=== PATIENT | male | born 1990 | race Caucasian/White ===

== ENCOUNTER 2017-10-19 23:01 | Emergency (ER) | payer BC, SELFPAY ==
[2017-10-19 23:02] VITALS: BP 152/82; PULSE 102; RESP 18; TEMP 36.6; O2SAT 100; BMI 38.3
--- NOTE | 2017-10-19 23:23 | CT_ITS ---
STUDY: CT BRAIN WITHOUT CONTRAST REASON FOR EXAM: Male, 27 years old. Dizziness. Frontal headache. Near syncope. Elevated blood pressure. RADIATION DOSAGE (If Supplied By Facility): CTDIvol = ( 44.99 ) mGy, DLP = ( 762.36 ) mGycm TECHNIQUE: Transaxial CT imaging of the brain was performed without administration of intravenous contrast material. Individualized dose optimization techniques were used for this CT. COMPARISON: None. FINDINGS: Normal soft tissue structures. Normal calvarium. Normal size ventricles and extra-axial spaces for the patient's age. Normal white matter tracts of the cerebral hemispheres. Normal basal ganglia and thalami. Normal brainstem. There is downward extension of the cerebellar tonsils and effacement of CSF spaces around the brainstem, consistent with a Chiari 1 malformation. Otherwise normal cerebellum. There is no intracranial hemorrhage. There are no findings of an acute ischemic infarction. There is mucoperiosteal thickening in left maxillary, bilateral ethmoid, bilateral frontal, and right sphenoid sinuses, consistent with mild chronic sinusitis. There is no evidence for acute sinusitis. CT/Brain/Head without Contrast IMPRESSION: Chiari 1 malformation. Suggest elective follow-up MRI of the cervical spine to assess for possible associated syringomyelia No demonstrated acute intracranial process. Electronically Signed: Gregg Gallagher MD at 1:10 EDT , Service support ,
--- NOTE | 2017-10-19 23:23 | RAD_ITS ---
STUDY: X-RAY CHEST REASON FOR EXAM: Male, 27 years old. Dizziness. Near syncope. TECHNIQUE: Single AP portable view of the chest. COMPARISON: None. FINDINGS: The lungs are clear and expanded. There is no demonstrated pleural abnormality. Normal size heart. Normal mediastinum and edwar. Normal visualized pulmonary arteries. Normal visualized aortic arch and descending thoracic aorta. Normal visualized thoracic spine. Normal visualized ribs, clavicles, and shoulders. There is no demonstrated abnormality of the visualized soft tissue structures of the upper abdomen. RAD/Chest 1 View (Portable) IMPRESSION: Normal x-ray examination of the chest. Electronically Signed: Gregg Gallagher MD at 1:12 EDT , Service support ,
--- NOTE | 2017-10-19 23:24 | EKG12_ITS ---
Test Reason : DIZZINESS Blood Pressure : / mmHG Vent. Rate : 083 BPM Atrial Rate : 083 BPM P-R Int : 142 ms QRS Dur : 094 ms QT Int : 364 ms P-R-T Axes : 068 071 056 degrees QTc Int : 427 ms Normal sinus rhythm Normal ECG Confirmed by BRANDAN RICH, TONEY ([id number]), supervising editor trailer CHRISTOPHER REYNAGA ([id number]) on 10/22/2017 10:33:41 AM Referred By: TONO Confirmed By:TONEY GIPSON MD
--- NOTE | 2017-10-19 23:25 | ED.VISSUMM ---
- ER Visit Summary Date of Service: 10/19/17 Chief Complaint: Dizziness History of Present Illness: The patient is a 27 M presenting with intermittent dizziness. Patient states that this happens while he is at work. 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 He states he drinks plenty of water while at work. He has had episodes where he felt lightheaded like he was going to pass out. Denies vertigo. He states that the longest episodes last 30 seconds. He has had these episodes 2-3 times per day for the past 1.5 weeks. He has a history of similar symptoms about a year ago which resolved on their own. He has appointment with a new family doctor on Wednesday. He denies chest pain or shortness of breath. He has mild nausea when he has the symptoms. No vomiting. No fever. No other complaints. Physical Examination: Vitals are stable. Patient is afebrile. Alert no acute distress. HEENT exam is unremarkable. Neck is supple. Lungs are clear and equal bilaterally. Heart is regular rate and rhythm. Abdomen is soft nontender nondistended. Extremities are unremarkable. Skin is warm and dry. No focal neurologic deficit. Remainder of exam is unremarkable. Emergency Department Course and Treatment: Patient is given IV fluids, Zofran. EKG sinus rate of 83. CBC is unremarkable. Chemistries normal except for BUN of 20. Troponin is negative. Orthostatic vital signs are negative: he had no dizziness, his heart rate increased, his blood pressure also increased. He is feeling improved following IV fluids. Chest x-ray shows no acute process. CT head shows Chiari 1 malformation. Suggest elective follow-up MRI of the cervical spine to assess for possible associated syringomyelia. No demonstrated acute intracranial process. Patient has a scheduled appointment with his primary care physician this Wednesday. He is feeling improved on reevaluation. He is advised to make sure he drinks plenty of water while at work. He is advised return ED for any worsening complaints Disposition: Discharge home Impression: Intermittent dizziness This note was generated with [employer] dictation software. It may contain incorrect words, spelling, and punctuation that were not noted in review of the chart prior to signing ED Disposition - Plan for ED Patient: Chief Complaint: Dizziness Referrals: NOT,DEFINED [Primary Care Provider] -
[2017-10-19 23:43] LABS: Absolute Lymphocyte Count 3.29 X10^3/ul (0.83-4.51); Absolute Neutrophil Count 5.4 X10^3/uL (2.0-7.7); Basophil# 0.02 X10^3/uL; Basophil% 0.2 % (0-1); Eosinophil# 0.36 X10^3/uL; Eosinophils% 3.5 % (0-5); Hematocrit 46.7 % (40-54); Hemoglobin 16.2 g/dl (13.0-16.5); Lymphocyte # 3.29 X10^3/ul (4.0); Lymphocyte % 32.3 % (19-41); Mean Corp Hgb Conc 34.7 g/gl (32-36); Mean Corpuscular Hgb 32.3 pg (27.0-32.0); Mean Corpuscular Volume 93.2 fL (80-94); Mean Platelet Vol. 10.2 fl (6.2-12.0); Monocyte# 1.12 X10^3/uL; Neutrophil # 5.36 X10^3/uL (2.7-7.7); Neutrophil % 52.7 % (47-70); Platelet Count 266 K/mm3 (150-450); RBC Distribution Width SD 43.3 fl (35.1-43.9); Red Blood Count 5.01 M/mm3 (4.6-6.2); White Blood Count 10.2 K/mm3 (4.4-11.0)
[2017-10-19 23:44] LABS: POSITIVE COUNT NO; POSITIVE DIFFERENTIAL NO; POSITIVE MORPHOLOGY NO
[2017-10-19 23:58] LABS: Anion Gap 6 (5-15); BUN 20 mg/dL (7-18); BUN/Creat Ratio 15.4 RATIO (10-20); Chloride 104 mmol/L (98-107); EST Glomerular Filtration Rate 70 mL/min (>60); Est Glom Filt Rate - Afr Amer 84 mL/min (>60); Estimated Creatinine Clearance 79.09 ml/min; Glucose 90 mg/dL (74-106); Potassium 3.7 mmol/L (3.5-5.1); Sodium Level 141 mmol/L (136-145)
[2017-10-20] MEDS: 0.9% Normal Saline 1,000 ML 1000 ML IV
[2017-10-20] MEDS: Ondansetron 4 MG/2 ML Vial IV
[2017-10-20 00:34] VITALS: BP 121/67; BP 133/75; BP 148/92; PULSE 84; PULSE 86; PULSE 97
[2017-10-20 01:11] VITALS: BP 138/79; PULSE 87; RESP 21; O2SAT 95
--- NOTE | 2017-10-20 01:52 | ED.DEP ---
ED Disposition - Plan for ED Patient: Chief Complaint: Dizziness Instructions: ED Dizziness UKO, ED Dehydration Referrals: NOT,DEFINED [Primary Care Provider] -
[2017-10-20 02:09] VITALS: BP 153/64; PULSE 81; RESP 17; O2SAT 98
--- NOTE | 2017-10-20 02:10 | ED.RN ---
IV DC'ED, CATHETER INTACT, SMALL GAUZE DRESSING PLACED. DISCHARGE INSTRUCTIONS GIVEN TO AND REVIEWED WITH PATIENT, PATIENT DENIES QUESTIONS OR CONCERNS AND VOICES UNDERSTANDING OF DISCHARGE INSTRUCTIONS. PT AMBULATES OUT OF ROOM WITHOUT DIFFICULTY.
== END 2017-10-20 02:11 | disposition home or self-care (01) ==
PROVIDERS: Emergency Provider Emergency Medicine
DX: R42 Dizziness and giddiness (principal); Z72.0 Tobacco use
CPT/HCPCS: 70450; 71045; 80048; 84484; 85025; 93005; 99285; J7030; J2405

== ENCOUNTER → 2017-11-30 15:25 | Outpatient (CLI) | payer BC, SELFPAY ==
--- NOTE | 2017-11-30 15:32 | MRI_ITS ---
STUDY: MRI BRAIN WITH AND WITHOUT CONTRAST REASON FOR EXAM: Male, 27 years old. Chiari malformation TECHNIQUE: Standardized multiplanar fat and water weighted pulse sequences were obtained. 10 ml of Gadavist contrast material was administered intravenously for the contrast portion of the examination. COMPARISON: CT of the brain on October 19, 2017. FINDINGS: Normal size of the ventricles and extra-axial spaces for the patient's age. Normal white matter tracts of the supratentorial brain. Normal bilateral basal ganglia. Normal thalami. There is no extra-axial fluid accumulation. Normal flow voids within the major intracranial circulation suggesting patency by spin echo criteria. Normal venous enhancement. There is no enhancing intra-axial or extra-axial abnormality. Normal sella turcica, pituitary gland, infundibular stalk, optic chiasm and hypothalamus. Normal tectal plate and pineal gland. Normal midbrain, treasure and medulla. There is peglike configuration of the cerebellar tonsils projecting into the upper foramen magnum consistent with Chiari I malformation. There is no associated cervical syrinx Normal basal cisterns. Normal bilateral temporal bones. Normal bilateral internal auditory canals. No demonstrated orbital abnormality, within the constraints of a routine brain study. There is mild mucosal thickening of the bilateral ethmoid, right sphenoid and right frontal sinuses. Normal calvarium and skull base. Normal visualized soft tissue structures. Normal visualized upper cervical spine. MRI/Brain W/WO Contrast IMPRESSION: Chiari I malformation of the cerebellar tonsils without associated cervical cervix. Bilateral ethmoid and right frontal and sphenoid sinusitis Electronically Signed: Jerson Self MD at 17:27 EDT , Service support ,
--- NOTE | 2017-11-30 15:33 | MRI_ITS ---
STUDY: MRI CERVICAL SPINE WITH AND WITHOUT CONTRAST REASON FOR EXAM: Male, 27 years old. Chiari malformation TECHNIQUE: Standardized fat and water weighted pulse sequences were obtained in the sagittal and axial following I.V. administration of 10 ml of Gadavist contrast material. COMPARISON: None FINDINGS: Normal foramen magnum and brainstem-cervical cord junction. Normal craniovertebral junction. Normal anterior atlantoaxial articulation. Normal odontoid process. Decreased cervical lordosis. Normal vertebral bodies and posterior osseous elements. C2-3: Normal endplates. Normal disc height, signal and morphology. Normal central canal and intervertebral neural foramina. C3-4: Normal endplates. Normal disc height, signal and tiny left posterolateral disc/osteophyte protrusion. Normal central canal. Mild left neural foraminal encroachment. C4-5: Normal endplates. Normal disc height, signal and morphology. Normal central canal and intervertebral neural foramina. C5-6: Normal endplates. Normal disc height, signal and morphology. Normal central canal and intervertebral neural foramina. C6-7: Normal endplates. Normal disc height, signal and tiny right paracentral disc protrusion.. Normal central canal and intervertebral neural foramina. C7-T1: Normal endplates. Normal disc height, signal and morphology. Normal central canal and intervertebral neural foramina. Segmental syrinx extending from C6-7 to C7 No enhancing lesions following contrast demonstration Normal visualized soft tissue structures. MRI/Spine Cervical W/WO Contrast IMPRESSION: Minor left neural foraminal encroachment at C3-4 secondary to tiny left posterolateral disc/osteophyte protrusion. Tiny right paracentral disc protrusion at C6-7 without spinal stenosis Small focal segmental syrinx extending from C6-7 to C7. No enhancing lesions following contrast demonstration Electronically Signed: Jerson Self MD at 19:35 EDT , Service support ,
== END ==
PROVIDERS: Family Provider Family Medicine; PCP Family Medicine; Visit Provider Family Medicine
DX: G93.5 Compression of brain (principal)
CPT/HCPCS: 70553; 72156; A9585

== ENCOUNTER → 2018-01-18 10:46 | Outpatient (CLI) | payer BC, SELFPAY ==
[2018-01-18 10:48] LABS: Lyme Ab Screen Interpretation REF LAB
[2018-01-18 12:03] LABS: Erythrocyte Sedimentation Rate 12 mm/hr (0-15)
[2018-01-18 12:05] LABS: Absolute Lymphocyte Count 3.21 X10^3/ul (0.83-4.51); Absolute Neutrophil Count 4.7 X10^3/uL (2.0-7.7); Basophil# 0.02 X10^3/uL; Basophil% 0.2 % (0-1); Eosinophils% 4.3 % (0-5); Hematocrit 50.2 % (40-54); Hemoglobin 16.5 g/dl (13.0-16.5); Lymphocyte # 3.21 X10^3/ul (4.0); Lymphocyte % 34.3 % (19-41); Mean Corp Hgb Conc 32.9 g/gl (32-36); Mean Corpuscular Hgb 30.9 pg (27.0-32.0); Mean Platelet Vol. 10.3 fl (6.2-12.0); Monocyte# 0.99 X10^3/uL; Monocyte% 10.6 % (0-10); Neutrophil # 4.71 X10^3/uL (2.7-7.7); Neutrophil % 50.4 % (47-70); POSITIVE COUNT NO; POSITIVE DIFFERENTIAL NO; POSITIVE MORPHOLOGY NO; Platelet Count 260 K/mm3 (150-450); RBC Distribution Width CV 13.6 % (11.6-14.6); RBC Distribution Width SD 46.8 fl (35.1-43.9); Red Blood Count 5.34 M/mm3 (4.6-6.2); White Blood Count 9.4 K/mm3 (4.4-11.0)
[2018-01-18 12:27] LABS: AST(SGOT) 25 U/L (15-37); Alanine Aminotransfer ALT/SGPT 46 U/L (16-61); Albumin, Serum 3.8 g/dL (3.2-5.0); Alkaline Phosphatase 72 U/L (45-117); Anion Gap 11 (5-15); BUN 15 mg/dL (7-18); BUN/Creat Ratio 13.8 RATIO (10-20); Calcium,Total 8.8 mg/dL (8.5-10.1); Chloride 104 mmol/L (98-107); Creatinine, Serum 1.09 mg/dL (0.70-1.30); EST Glomerular Filtration Rate 85 mL/min (>60); Est Glom Filt Rate - Afr Amer 103 mL/min (>60); Globulin 3.7 g/dL (2.2-4.2); Glucose 71 mg/dL (74-106); Potassium 3.8 mmol/L (3.5-5.1); Protein, Total 7.5 g/dL (6.4-8.2); Rheumatoid Factor < 10.0 IU/mL (<15); Sodium Level 141 mmol/L (136-145); Thyroid Stim Hormone (TSH) 2.21 uIU/mL (0.358-3.74)
[2018-01-19 08:53] LABS: Vitamin B12 302 pg/mL (211-911); Vitamin D,25 Hydroxy 20.9 ng/mL (29.95-100.01)
[2018-01-19 15:35] LABS: ANTINUCLEAR ANTIBODIES DIRECT Negative (Negative)
[2018-01-19 16:33] LABS: Lyme Scn Total Ab w/Rflx <0.91 ISR (0.00-0.90)
== END ==
PROVIDERS: Family Provider Family Medicine; PCP Family Medicine; Visit Provider Family Medicine
DX: M25.50 Pain in unspecified joint (principal); R53.83 Other fatigue
CPT/HCPCS: 36415; 80053; 82306; 82607; 84443; 85025; 85652; 86038; 86431; 86618

== ENCOUNTER → 2018-05-03 14:26 | Outpatient (CLI) | payer BC, SELFPAY ==
[2018-05-03 16:12] LABS: Vitamin D,25 Hydroxy 29.5 ng/mL (29.95-100.01)
== END ==
PROVIDERS: Family Provider Family Medicine; PCP Family Medicine; Visit Provider Family Medicine
DX: E55.9 Vitamin D deficiency, unspecified (principal)
CPT/HCPCS: 36415; 82306

== ENCOUNTER 2019-03-05 08:55 | Emergency (ER) | payer BC, SELFPAY ==
[2019-03-05 08:55] VITALS: BP 158/86; PULSE 103; RESP 18; TEMP 36.4; O2SAT 100; BMI 39.9
--- NOTE | 2019-03-05 09:13 | CT_ITS ---
STUDY: CT LUMBAR SPINE WITHOUT CONTRAST REASON FOR EXAM: Male, 28 years old. Back pain for RADIATION DOSAGE (If Supplied By Facility): CTDIvol = ( 41.71 ) mGy, DLP = ( 1149.33 ) mGycm TECHNIQUE: The patient was scanned in a multi detector CT scanner. High resolution transaxial imaging was performed. Images were obtained from T12 to S2. Sagittal and coronal images were reconstructed. Individualized dose optimization techniques were used for this CT. COMPARISON: None FINDINGS: There is straightening of the normal lumbar lordosis. There is no substantial scoliosis. Normal alignment of the lumbar vertebral bodies. There is minimal anterior wedging of L1 vertebra probably representing a normal variant. There is no demonstrated compression deformity or fracture of the visualized lumbar vertebrae. L1-2: Normal endplates. Normal disc height and morphology. Normal bilateral facet joints. Normal central canal and bilateral lateral recesses. Normal bilateral intervertebral neural foramina. L2-3: Normal endplates. Normal disc height and morphology. Normal bilateral facet joints. Normal central canal and bilateral lateral recesses. Normal bilateral intervertebral neural foramina. L3-4: Mild broad-based this bulging extending to the lateral recesses bilaterally. The central spinal canal is borderline. There is probable mild narrowing of the neural foramina bilaterally. L4-5: Mild broad-based this bulging extending to the lateral recesses bilaterally. Borderline central spinal canal and bilateral neural foramina. L5-S1: Mild central disc bulging. The central spinal canal is within normal limits. There is no definite neural foramina stenosis. Normal visualized paraspinous soft tissue structures. CT/Spine Lumbar without Contrast IMPRESSION: 1. Mild disc bulging at multiple levels as described above. 2. No demonstrated acute compression fracture deformity. 3. If symptoms persist, further evaluation with MRI of the lumbar spine is recommended. Electronically Signed: Darnell Britton MD at 10:26 EDT Tel , Service support ,
--- NOTE | 2019-03-05 09:15 | ED.VISSUMM ---
- ER Visit Summary Date of Service: 03/05/19 Chief Complaint: Back pain History of Present Illness: The patient is a 28 M who presents emergency department for evaluation of low back pain. Patient states that baseline he has chronic tightness in the low back and has been thinking about doing yoga or stretching. He tells me that he has had no known prior back trauma or injuries. Throughout this past week he notes a gradual tightening of low back. Yesterday he was at work and did lift some objects but states there is no 1 particular left that was worse than the others. By this morning he states is extremely painful for him to attempt to straighten and stand. Hard for him to get to the bathroom. He has been able to control his bowels and his bladder. He denies any radiation to the legs. He denies any leg weakness or paresthesias. Denies any recent fevers or infection. He denies any rashes. No IV drug use. He has not had any back injections. He has seen a chiropractor fairly regularly in the past. Physical Examination: Afebrile vital signs are stable Gen: Well-nourished well-developed Head: Normocephalic atraumatic Eyes: Perrl EOMI ENT: TMs clear no rhinorrhea moist mucous membranes Neck: Supple no lymphadenopathy no JVD nontender CVS: Regular rate rhythm no murmurs normal S1-S2 Respiratory: No distress clear to auscultation bilaterally chest nontender Abdomen: Soft nontender nondistended normal bowel sounds no masses Back: There is some tenderness palpation in the right paraspinal musculature. Patient has pain in the low back with any type of movement. Do not appreciate any rash or fluctuance to suggest an abscess. Extremity: Nontender no edema Skin: Normal color no rash Neuro: alert orientated ?3 CN II-XII intact normal strength sensation reflexes (+2 patellar and Achilles reflexes) Psych: Normal affect normal mood Test Results: CT of the lumbar spine was obtained which does not demonstrate any fracture or bony abnormality. No mild disc bulging at multiple levels. Emergency Department Course and Treatment: Patient received injection of Dilaudid Toradol and oral Valium. He does note significant improvement in his symptoms. At this point I do not see any evidence of neurologic deficits. Going to write for him to have Toradol, Valium, and OxyIR at home. He is to follow-up with his primary care physician. Impression: 1. Acute lumbar muscle spasm This note was generated with [employer] dictation software. It may contain incorrect words, spelling, and punctuation that were not noted in review of the chart prior to signing ED Disposition - Plan for ED Patient: Disposition: Home or Assisted Living Instructions: BACK SPASM, No Trauma Prescriptions: Oxycodone [Oxyir] 5 - 10 mg PO Q6H PRN PRN 3 Days #12 tab PRN Reason: pain Prescription Printed Ketorolac [Toradol] 10 mg PO Q8H PRN 3 Days #12 tab PRN Reason: Pain Score 1-10/10 Prescription Printed Diazepam [Valium] 5 mg PO Q8 PRN 3 Days #9 tab PRN Reason: Muscle Spasm Prescription Printed Referrals: Gary Olson, [facility] [Primary Care Provider] - 3-5 Days
[2019-03-05] MEDS: diazePAM 5 MG Tablet PO (09:34)
[2019-03-05] MEDS: Ketorolac 60 MG/2 ML Vial IM (09:34)
[2019-03-05] MEDS: HYDROmorphone 1 MG/ML Syringe IM (09:34)
[2019-03-05 10:54] VITALS: BP 136/85; PULSE 86; RESP 16; O2SAT 89
== END 2019-03-05 11:05 | disposition home or self-care (01) ==
PROVIDERS: Emergency Provider Emergency Medicine; Family Provider Nurse Practitioner Family; PCP Nurse Practitioner Family
DX: M62.830 Muscle spasm of back (principal); Z72.0 Tobacco use
CPT/HCPCS: 72131; 99283

== ENCOUNTER 2020-05-28 02:39 | Emergency (ER) | payer BC, SELFPAY ==
--- NOTE | 2020-05-28 02:40 | EKG12_ITS ---
Test Reason : CP Blood Pressure : / mmHG Vent. Rate : 099 BPM Atrial Rate : 099 BPM P-R Int : 142 ms QRS Dur : 092 ms QT Int : 348 ms P-R-T Axes : 065 066 027 degrees QTc Int : 446 ms Normal sinus rhythm Normal ECG Confirmed by SAM RICH, CORIN ([id number]), design editor FRANCISCO JAVIER GALEAS ([id number]) on 06/03/2020 9:15:22 AM Referred By: MR Confirmed By:MAUDE VARGAS MD
--- NOTE | 2020-05-28 02:40 | RAD_ITS ---
STUDY: X-RAY CHEST REASON FOR EXAM: Male, 29 years old. intermittent cp for 3 yrs -- c/o lt sided cp with pain going into lt arm worse for last 2 hours -- pain decreases when patient is sitting up TECHNIQUE: PA and lateral views of the chest. COMPARISON: 10/19/2017. FINDINGS: The lungs are clear and expanded. There is no demonstrated pleural abnormality. Normal size heart. Normal mediastinum and edwar. Normal visualized pulmonary arteries. Normal visualized aortic arch and descending thoracic aorta. Normal visualized thoracic spine. Normal visualized ribs, clavicles, and shoulders. There is no demonstrated abnormality of the visualized soft tissue structures of the upper abdomen. RAD/Chest PA and Lateral IMPRESSION: Normal x-ray examination of the chest. Electronically Signed: Louann Pritchett MD at 3:11 EST , Service support ,
[2020-05-28 02:41] VITALS: BP 161/100; PULSE 99; RESP 20; TEMP 36.8; O2SAT 99; BMI 37.5
[2020-05-28 02:47] LABS: Hemoglobin 16.6 g/dL (13.0-16.5); Red Blood Count 5.39 M/mm3 (4.6-6.2); White Blood Count 10.6 K/mm3 (4.4-11.0)
[2020-05-28 02:48] LABS: Absolute Lymphocyte Count 4.27 X10^3/uL (0.83-4.51); Absolute Neutrophil Count 5.1 X10^3/uL (2.0-7.7); Basophil# 0.04 X10^3/uL; Basophil% 0.4 % (0-1); Eosinophil# 0.28 X10^3/uL; Eosinophils% 2.6 % (0-5); Hematocrit 50.5 % (40-54); Lymphocyte # 4.27 X10^3/ul (4.0); Lymphocyte % 40.2 % (19-41); Mean Corp Hgb Conc 32.9 g/dL (32-36); Mean Corpuscular Hgb 30.8 pg (27.0-32.0); Mean Corpuscular Volume 93.7 fL (80-94); Mean Platelet Vol. 9.7 fl (6.2-12.0); Monocyte# 0.89 X10^3/uL; Monocyte% 8.4 % (0-10); NRBC Flagged by Analyzer 0 % (0-5); Neutrophil # 5.09 X10^3/uL (2.7-7.7); Platelet Count 289 K/mm3 (150-450); RBC Distribution Width CV 13.4 % (11.6-14.6); RBC Distribution Width SD 45.7 fl (35.1-43.9)
[2020-05-28] MEDS: Mag Hydrox/Al Hydrox/Simeth 30 ML UDC PO (02:48)
--- NOTE | 2020-05-28 02:57 | ED.VIS.CHEST ---
History of Present Illness Chief Complaint: Chest Pain Informant: Parent Narrative: Patient presenting for evaluation secondary to chest pain. Patient reports that over the course of multiple weeks he has been having some issues with chest pain, but tonight it seemed to get somewhat worse. Patient describes it as a sharp tightness type feeling in his left chest that is associated with some radiation to his shoulder and down his left arm. He does report that associated with some shortness of breath, denies any lightheadedness. It is associated with some nausea on occasion, he denies any heartburn or reflux type feelings. No syncope. No exertional component with this. Patient states that it almost always is worse with lying flat and is better with sitting upright. Patient states that he has had some prior similar symptoms in the past that actually resulted in coronary angiography showing clear coronaries. Patient states that he is not a smoker. Patient does have some history of heart disease on his grandfather's side. He denies any DVT or PE risk factors. Patient is on muscle relaxers, and used to take Prozac but stopped taking that about a month ago. Past Medical History - Allergies and Home Meds Allergies/Adverse Reactions: Allergies No Known Allergies Allergy (Verified 05/28/20 02:40) Primary Care Physician: Tracy Aggarwal MD [Primary Care Provider] - Prior records reviewed: Yes Past Medical History: None Lives: Spouse/ Significant Other Smoking Status: Current every day smoker - Patient denied smoking to me Alcohol: None Drugs: None Review of Systems All systems negative except as indicated General: Denies: Chills, Fever, Sweats Eyes: Denies: Visual changes - bilaterally, Diplopia ENT: Denies: Rhinorrhea, Sore throat Cardiovascular: Reports: Chest pain Respiratory: Reports: Dyspnea Gastrointestinal: Reports: Nausea Genitourinary: Denies: Dysuria, Hematuria, Frequency Musculoskeletal: Denies: Back pain, Extremity Pain Skin: Denies: Rash, Wounds Neurological: Denies: Headache, Weakness, Numbness Physical Exam Vital Signs/Narrative: Vital Signs Temp Pulse Resp BP Pulse Ox 05/28/20 02:41 98.3 F 99 20 H 161/100 H 99 Inital Vital Signs reviewed: Yes General: Well nourished, Well developed, No Acute Distress Head: Normocephalic, Atraumatic Eyes: Perrl, EOMI ENT: Moist mucous membranes, No rhinorrhea Neck: Supple, Nontender Cardiovascular: Regular rate, Regular rhythm, No murmurs, - - No evidence of rubs, no changes with change in position Respiratory: No distress, CTA bilaterally, Chest nontender Abdomen: Soft, Nontender, Nondistended, Normal bowel sounds Back: Nontender, Normal Inspection Extremities: Nontender, No edema Skin: Normal color, No rash Neurological: Alert, Oriented x3, Cranial nerves II-XII grossly intact, Normal Strength, Normal Sensation Psychological: Normal affect, Normal Mood Diagnostic/Tx/Re-eval Chest X-Ray - ED: 2 View, Read by ED Physician Clinical Impression(s) from Imaging Studies Chest X-Ray 05/28/20 02:40 IMPRESSION: Normal x-ray examination of the chest. Electronically Signed: Louann Pritchett MD at 3:11 EST , Service support , Laboratory Data 05/28/20 05/28/20 02:42 02:42 WBC 10.6 RBC 5.39 Hgb 16.6 H Hct 50.5 MCV 93.7 MCH 30.8 MCHC 32.9 RDW Std Deviation 45.7 H RDW Coeff of Fede 13.4 Plt Count 289 MPV 9.7 Immature Gran % (Auto) 0.400 Neut % (Auto) 48.0 Lymph % (Auto) 40.2 [place] % (Auto) 8.4 Eos % (Auto) 2.6 Baso % (Auto) 0.4 Absolute Neuts (auto) 5.1 Absolute Lymphs (auto) 4.27 Nucleated RBC % 0 ESR 12 Sodium 140 Potassium 3.9 Chloride 106 Carbon Dioxide 31.0 Anion Gap 3 L BUN 16 Creatinine 1.02 Estim Creat Clear Calc 116.23 Est GFR (MDRD) Af Amer 110 Est GFR (MDRD) Non-Af 91 BUN/Creatinine Ratio 15.7 Glucose 103 Calcium 8.7 Troponin I < 0.015 - EKG Initial EKG Interpretation: - - Sinus rhythm 99, normal SD and QTc intervals isoelectric ST segments normal T waves no evidence of WPW or Brugada morphology, no evidence of diffuse ST elevation or pericarditis type changes. - Medical Decision Making Patient presenting secondary to chest pain. Chest x-ray by my personal review as well as radiology is negative. CBC chemistry and troponin also found to be unremarkable. Patient's maximum heart score is 2, he had a cardiac catheterization around 2 years ago and his symptoms sound rather atypical. I did also add on ESR in case this was a presentation of pericarditis, that was also found to be negative. Patient given the reproduction with recumbency potentially is associated with GERD. Patient be placed on a PPI, he will be given follow-up with general surgery. Patient was discharged in stable condition. ED Disposition - Plan for ED Patient: Disposition: Home or Assisted Living Diagnosis: GERD (gastroesophageal reflux disease) Instructions: ED GERD (Adult) Prescriptions: Omeprazole 40 mg PO DAILY #30 capsule. Prescription Printed Referrals: Chantell Taylor MD [STAFF PHYSICIAN] - 1-2 Weeks
[2020-05-28 03:03] LABS: Anion Gap 3 (5-15); BUN 16 mg/dL (7-18); BUN/Creat Ratio 15.7 RATIO (10-20); Calcium,Total 8.7 mg/dL (8.5-10.1); Chloride 106 mmol/L (98-107); Creatinine, Serum 1.02 mg/dL (0.70-1.30); EST Glomerular Filtration Rate 91 mL/min (>60); Est Glom Filt Rate - Afr Amer 110 mL/min (>60); Estimated Creatinine Clearance 116.23 ml/min; Glucose 103 mg/dL (74-106); Potassium 3.9 mmol/L (3.5-5.1); Sodium Level 140 mmol/L (136-145)
[2020-05-28 03:08] LABS: Erythrocyte Sedimentation Rate 12 mm/hr (0-15)
[2020-05-28 03:54] VITALS: BP 138/87; PULSE 98; RESP 16; O2SAT 97
[2020-05-28 04:28] VITALS: BP 141/99; PULSE 94; RESP 16; O2SAT 98
== END 2020-05-28 04:35 | disposition home or self-care (01) ==
PROVIDERS: Emergency Provider Emergency Medicine; PCP Internal Medicine
DX: K21.9 Gastro-esophageal reflux disease without esophagitis (principal)
CPT/HCPCS: 71046; 80048; 84484; 85025; 85652; 93005; 99285; A4216

== ENCOUNTER 2021-11-18 00:14 | Emergency (ER) | payer BC, SELFPAY ==
[2021-11-18 00:15] VITALS: BP 131/82; PULSE 72; RESP 16; TEMP 36.4; O2SAT 100; BMI 27.8
--- NOTE | 2021-11-18 00:35 | RAD_ITS ---
STUDY: X-RAY CHEST REASON FOR EXAM: Male, 31 years old. hemoptysis TECHNIQUE: Frontal and lateral views of the chest. COMPARISON: None. FINDINGS: The lungs are clear and expanded. There is no demonstrated pleural abnormality. Normal size heart. Normal mediastinum and edwar. Normal visualized pulmonary arteries. Normal visualized aortic arch and descending thoracic aorta. Normal visualized thoracic spine. Normal visualized ribs, clavicles, and shoulders. There is no demonstrated abnormality of the visualized soft tissue structures of the upper abdomen. RAD/Chest PA and Lateral IMPRESSION: Normal x-ray examination of the chest. Electronically Signed: Kat Paige MD at 1:05 EDT ,
[2021-11-18 00:59] LABS: Absolute Lymphocyte Count 4.47 X10^3/uL (0.83-4.51); Absolute Neutrophil Count 3.8 X10^3/uL (2.0-7.7); Basophil# 0.03 X10^3/uL; Basophil% 0.3 % (0-1); Eosinophil# 0.27 X10^3/uL; Eosinophils% 2.9 % (0-5); Hematocrit 43.5 % (40-54); Hemoglobin 14.4 g/dL (13.0-16.5); Lymphocyte # 4.47 X10^3/ul (0.83-4.51); Lymphocyte % 48.4 % (19-41); Mean Corp Hgb Conc 33.1 g/dL (32-36); Mean Corpuscular Hgb 30.1 pg (27.0-32.0); Mean Corpuscular Volume 90.8 fL (80-94); Mean Platelet Vol. 9.7 fl (6.2-12.0); Monocyte# 0.69 X10^3/uL; Monocyte% 7.5 % (0-10); NRBC Flagged by Analyzer 0 % (0-5); Neutrophil # 3.76 X10^3/uL (2.7-7.7); Neutrophil % 40.7 % (47-70); Platelet Count 276 K/mm3 (150-450); RBC Distribution Width CV 13.1 % (11.6-14.6); RBC Distribution Width SD 43.7 fl (35.1-43.9); Red Blood Count 4.79 M/mm3 (4.6-6.2); White Blood Count 9.2 K/mm3 (4.4-11.0)
[2021-11-18 01:10] LABS: D-Dimer Quantitative (DVT/PE) < 0.27 FEU/ug/m (0.27-0.49)
[2021-11-18 01:18] LABS: Anion Gap 5 (5-15); BUN 21 mg/dL (7-18); BUN/Creat Ratio 18.8 RATIO (10-20); Calcium,Total 9.1 mg/dL (8.5-10.1); Chloride 111 mmol/L (98-107); Creatinine, Serum 1.12 mg/dL (0.70-1.30); EST Glomerular Filtration Rate 81 mL/min (>60); Est Glom Filt Rate - Afr Amer 98 mL/min (>60); Estimated Creatinine Clearance 91.61 ml/min; Glucose 92 mg/dL (74-106); Potassium 3.7 mmol/L (3.5-5.1); Sodium Level 144 mmol/L (136-145)
--- NOTE | 2021-11-18 01:22 | EX.ED.DYSGE1 ---
HPI History of Present Illness Chief Complaint: General Illness Detail of Chief Complaint: Hemoptysis Informant: patient Onset/Context/Timing Onset: Today Narrative Narrative: Patient presents after coughing up some blood tonight. Approximately half hour prior to arrival he coughed and had some blood streaks noted in it. He has not been coughing or sick recently. He does state for the past 5 years he has had pain throughout his thoracic area and arms. He has been getting worked up for this with no definitive cause. In light of this and now having hemoptysis he came in for evaluation of it. [facility] Medical History High cholesterol Home Medications cyclobenzaprine 10 mg tablet 10 mg PO PRN PRN Muscle Spasm 05/28/20 [History Last Taken Unknown] omeprazole 40 mg capsule,delayed release 40 mg PO DAILY ##30 05/28/20 [Rx Last Taken Unknown] atorvastatin 10 mg tablet 10 mg PO DAILY 11/18/21 [History Last Taken Unknown] Allergy/AdvReac Type Severity Reaction Status Date / Time No Known Allergies Allergy Verified 11/18/21 00:15 Social History Smoking Status: Former smoker ROS ROS ED Constitutional Constitutional ED: Denies chills or fever(s) Eyes Eyes: Denies change in vision or discharge from eye(s) ENT ENT ED: Denies discharge from eye(s), rhinorrhea or sore throat Cardiovascular Cardiovascular: Denies chest pain or palpitations Respiratory/Chest Respiratory/Chest: Reports other Details: Single episode of hemoptysis ; Denies dyspnea Gastrointestinal Gastrointestinal: Denies abdominal pain, diarrhea, nausea or vomiting Genitourinary Genitourinary ED: Denies difficulty urinating or dysuria Musculoskeletal Musculoskeletal: Reports back pain and extremity pain Integumentary Denies Abrasions or rash Neurologic Neurologic: Denies headache(s) or weakness Psychiatric Psychiatric: Denies anxiety or depression Allergic/Immunologic Allergic/Immunologic ED: Denies lip swelling or urticaria EXAM Physical Exam Const Vital Signs: 11/18/21 00:15 11/18/21 00:23 Temperature 97.5 F L Temperature Source Temporal Pulse Rate 72 Respiratory Rate 16 Respiratory Effort Short of Breath Blood Pressure 131/82 H Blood Pressure Mean 98 Pulse Ox 100 Oxygen Delivery Method Room Air Positive well nourished and well developed General Appearance ED: well developed HEENT Reports normocephalic and head/scalp atraumatic HEENT Narrative: Mild cobblestoning the posterior pharynx. No blood noted. Eyes PERRL and EOMs intact bilaterally Neck supple Chest Wall inspection of chest normal and palpation of chest normal Resp normal respiratory effort and clear to auscultation bilaterally Cardio regular rate and regular rhythm GI normal to inspection, nondistended, normoactive bowel sounds Palpation: soft Extremity normal to inspection Neuro oriented x3 and no sensory deficits noted Sensorium / Orientation: alert Motor Exam: strength 5/5 throughout Psych mental status grossly normal Skin no rashes or lesions noted MDM MDM MDM Narrative Medical decision making narrative: Patient placed on monitor technician. Chest x-ray and lab work obtained. Lab Data Labs: Laboratory Results - last 24 hr 11/18/21 11/18/21 11/18/21 00:28 00:28 00:28 WBC 9.2 RBC 4.79 Hgb 14.4 Hct 43.5 MCV 90.8 MCH 30.1 MCHC 33.1 RDW Std Deviation 43.7 RDW Coeff of Fede 13.1 Plt Count 276 MPV 9.7 Immature Gran % (Auto) 0.200 Neut % (Auto) 40.7 L Lymph % (Auto) 48.4 H [place] % (Auto) 7.5 Eos % (Auto) 2.9 Baso % (Auto) 0.3 Absolute Neuts (auto) 3.8 Absolute Lymphs (auto) 4.47 Nucleated RBC % 0 D-Dimer Quant (PE/DVT) < 0.27 L Sodium 144 Potassium 3.7 Chloride 111 H Carbon Dioxide 28.0 Anion Gap 5 BUN 21 H Creatinine 1.12 Estim Creat Clear Calc 91.61 Est GFR (MDRD) Af Amer 98 Est GFR (MDRD) Non-Af 81 BUN/Creatinine Ratio 18.8 Glucose 92 Calcium 9.1 Radiography Chest X-Ray - ED: 2 View, Read by ED Physician, Normal, Heart, Lungs, Mediastinum and No Infiltrates Diagnostic Testing: Clinical Impression(s) from Imaging Studies Chest X-Ray 11/18/21 00:35 IMPRESSION: Normal x-ray examination of the chest. Electronically Signed: Kat Paige MD at 1:05 EDT , Treatment and Re-Evaluation Narrative: Rotation right2 view chest x-ray read by myself reveals no infiltrates or masses. Viewed. Lab work unremarkable including negative D-dimer. Patient is reassured with these findings. He will continue his outpatient work-up for his chronic thoracic pain. Return instructions provided. Discharge Plan Triage Chief Complaint: General Illness ED Provider: Zoila Sebastian Dx/Rx/DC Orders Clinical Impression: Cough with hemoptysis Instructions: ED Hemoptysis Prescriptions: No Action cyclobenzaprine 10 MG tablet 10 mg PO PRN PRN (Reason: Muscle Spasm) omeprazole 40 MG capsule,delayed release(DR/EC) 40 mg PO DAILY Qty: 30 0RF atorvastatin 10 mg Tablet 10 mg PO DAILY Primary Care Provider: Terrell Baker Referrals: Terrell Baker MD [Primary Care Provider] - 3-5 Days if not improving Disposition Disposition: Home, Self Care
[2021-11-18 01:40] VITALS: BP 90/64; PULSE 68; RESP 16; O2SAT 98
--- NOTE | 2021-11-18 01:41 | ED.RN ---
REVIEWED D/C INSTRUCTIONS, FOLLOW UP CARE, AND S/S THAT WOULD WARRANT A RETURN TO THE ED WITH PT. PT VERBALIZED AN UNDERSTANDING AND DENIES FURTHER QUESTIONS FOR THIS RN. PT SKIN P/W/D, RESP EVEN AND UNLABORED, PT A&O X 3, NO DISTRESS NOTED. PT AMBULATED OUT OF ED, GAIT STEADY.
== END 2021-11-18 01:42 | disposition home or self-care (01) ==
PROVIDERS: Emergency Provider Emergency Medicine; PCP Family Medicine; Visit Provider Emergency Medicine
DX: R04.2 Hemoptysis (principal); E78.00 Pure hypercholesterolemia, unspecified; Z79.899 Other long term (current) drug therapy; Z87.891 Personal history of nicotine dependence
CPT/HCPCS: 71046; 80048; 85025; 85379; 99284

== ENCOUNTER 2022-01-21 20:34 | Emergency (ER) | payer BC, SELFPAY ==
[2022-01-21 20:35] VITALS: BP 146/85; PULSE 92; RESP 14; TEMP 36.3; O2SAT 98; BMI 28.5
--- NOTE | 2022-01-21 20:48 | EKG12_ITS ---
Test Reason : DYSRHYTHMIA Blood Pressure : / mmHG Vent. Rate : 081 BPM Atrial Rate : 081 BPM P-R Int : 134 ms QRS Dur : 090 ms QT Int : 362 ms P-R-T Axes : 074 068 049 degrees QTc Int : 420 ms Normal sinus rhythm Normal ECG Confirmed by SAM RICH, CORIN ([id number]), news editor FRANCISCO JAVIER GALEAS ([id number]) on 01/22/2022 1:29:08 PM Referred By: SAUNDRA Confirmed By:MAUDE VARGAS MD
[2022-01-21 21:03] LABS: Absolute Lymphocyte Count 2.48 X10^3/uL (0.83-4.51); Absolute Neutrophil Count 3.3 X10^3/uL (2.0-7.7); Basophil# 0.03 X10^3/uL; Basophil% 0.5 % (0-1); Eosinophil# 0.13 X10^3/uL; Hematocrit 45.2 % (40-54); Hemoglobin 15.4 g/dL (13.0-16.5); Lymphocyte # 2.48 X10^3/ul (0.83-4.51); Lymphocyte % 38.2 % (19-41); Mean Corp Hgb Conc 34.1 g/dL (32-36); Mean Corpuscular Hgb 30.6 pg (27.0-32.0); Mean Corpuscular Volume 89.7 fL (80-94); Mean Platelet Vol. 9.2 fl (6.2-12.0); Monocyte# 0.58 X10^3/uL; Monocyte% 8.9 % (0-10); NRBC Flagged by Analyzer 0 % (0-5); Neutrophil # 3.25 X10^3/uL (2.7-7.7); Neutrophil % 50.1 % (47-70); Platelet Count 258 K/mm3 (150-450); RBC Distribution Width CV 12.4 % (11.6-14.6); RBC Distribution Width SD 40.6 fl (35.1-43.9); Red Blood Count 5.04 M/mm3 (4.6-6.2); White Blood Count 6.5 K/mm3 (4.4-11.0)
[2022-01-21 21:04] VITALS: BMI 28.5
--- NOTE | 2022-01-21 21:06 | EX.ED.DYSGE1 ---
HPI History of Present Illness Chief Complaint: Neuro S/Sx Informant: patient Narrative Narrative: Patient presents with intermittent pain in his left forearm for which he reports deep spasms and tightness similar to vice director of rotc with referred pain up his arm and down his legs. There is no pain or numbness in his body or face. Reports her last 2 minutes would come and go. Last time was 30 minutes prior to arrival. Denies trauma. Denies any new exercises yesterday evening. He has had multiple episodes in the past with similar presentations. Last time 6 months ago he states he was evaluated at emergency department. He states unknown etiology. He seen his PCP's concerns for cervical radiculopathy. He is referred to neurology pending. He is right-hand dominant. He is on Flexeril for which she states does not help. History of Arnold-Chiari syndrome with no surgical interventions. Currently symptoms have subsided. Denies recent vomiting or diarrhea. Prior similar symptoms: Yes [facility] Medical History High cholesterol Home Medications cyclobenzaprine 10 mg tablet 10 mg PO PRN PRN Muscle Spasm 05/28/20 [History Last Taken Unknown] omeprazole 40 mg capsule,delayed release 40 mg PO DAILY ##30 05/28/20 [Rx Last Taken Unknown] atorvastatin 10 mg tablet 10 mg PO DAILY 11/18/21 [History Last Taken Unknown] diazepam 5 mg tablet 5 mg PO Q8 PRN Muscle Spasm #12 tabs 01/21/22 [Rx Last Taken Unknown] Allergy/AdvReac Type Severity Reaction Status Date / Time No Known Allergies Allergy Verified 01/21/22 20:35 Social History Smoking Status: Former smoker ROS ROS ED Constitutional Constitutional ED: Denies chills, fever(s) or sweats Eyes Eyes: Denies change in vision ENT ENT ED: Denies dysphagia or sore throat Cardiovascular Cardiovascular: Denies chest pain, leg edema, palpitations or racing heartbeat Respiratory/Chest Respiratory/Chest: Denies cough, dyspnea or dyspnea on exertion Gastrointestinal Gastrointestinal: Denies abdominal pain, diarrhea, nausea or vomiting Genitourinary Genitourinary ED: Denies dysuria, hematuria or urinary frequency Musculoskeletal Musculoskeletal: Reports extremity pain and other Details: Left arm pain. ; Denies back pain or neck pain Integumentary Denies rash or wounds Neurologic Neurologic: Denies headache(s), paresthesias or weakness EXAM Physical Exam Const Vital Signs: 01/21/22 20:35 Temperature 97.3 F L Temperature Source Temporal Pulse Rate 92 Respiratory Rate 14 Blood Pressure 146/85 H Blood Pressure Mean 105 Pulse Ox 98 Oxygen Delivery Method Room Air Positive well nourished and well developed General Appearance ED: well developed and NAD HEENT Reports moist mucous membranes normocephalic and atraumatic Eyes PERRL, EOMs intact bilaterally and conjunctivae normal General Eye ED: Yes normal appearance of both eyes Neck no lymphadenopathy and supple General: Negative for tenderness Chest Wall Chest: Negative for tenderness Resp normal respiratory effort and normal air movement Effort and Inspection: symmetric chest movement; Negative for respiratory distress Cardio regular rate, regular rhythm and no murmurs Peripheral Pulses: pulses 2+ throughout GI normal to inspection, nondistended, normoactive bowel sounds and non-tender Palpation: Negative for guarding or rebound tenderness present Back/Spine no CVA tenderness and no thoracic nor lumbar tenderness Extremity normal to inspection Extremity Narrative: Left upper extremity: Soft compartments humerus forearm, distal pulses were intact. General Extremety ED: Negative for edema or tenderness General Extremity: Negative for edema Neuro oriented x3, CN's II-XII intact bilaterally and no sensory deficits noted Neuro Narrative: NIH equals 0. Cerebellar testing upper and lower intact and normal. Sensorium / Orientation: awake and alert Skin no rashes or lesions noted and no wounds MDM MDM MDM Narrative Medical decision making narrative: Patient currently asymptomatic. EKG normal labs with electrolytes are normal. No clear reason for his reported symptoms. However discussed concerns for muscle spasms causing his symptoms. He reported multiple symptoms in the past. He had significant symptoms at the age of 28 leading to his chest reported had a heart cath that was normal at that time through [facility]. He has had multiple work-ups. He is being referred to Dr. Cervantes to be seen in 2 weeks. Reports pain would be intense causing near syncopal episode discussed likely a vasovagal response to pain. Currently not having the symptoms. He states Flexeril does not work. Discussed holding this medicine he will be written for diazepam to use as needed. He will keep his follow-up with neurology as an outpatient. All questions were answered. Lab Data Attestation: I reviewed the patient's lab results. Labs: Laboratory Results - last 24 hr 01/21/22 01/21/22 20:57 20:57 WBC 6.5 RBC 5.04 Hgb 15.4 Hct 45.2 MCV 89.7 MCH 30.6 MCHC 34.1 RDW Std Deviation 40.6 RDW Coeff of Fede 12.4 Plt Count 258 MPV 9.2 Immature Gran % (Auto) 0.300 Neut % (Auto) 50.1 Lymph % (Auto) 38.2 [place] % (Auto) 8.9 Eos % (Auto) 2.0 Baso % (Auto) 0.5 Absolute Neuts (auto) 3.3 Absolute Lymphs (auto) 2.48 Nucleated RBC % 0 Sodium 140 Potassium 3.8 Chloride 107 Carbon Dioxide 28.0 Anion Gap 5 BUN 22 H Creatinine 1.11 Estim Creat Clear Calc 92.43 Est GFR (MDRD) Af Amer 99 Est GFR (MDRD) Non-Af 81 BUN/Creatinine Ratio 19.8 Glucose 106 Calcium 9.0 EKG Initial EKG: Attestation: I personally reviewed and interpreted this EKG as follows: Comments: Sinus rhythm rate of 81, no ST or T wave changes. Discharge Plan Triage Chief Complaint: Neuro S/Sx ED Provider: Bobby Conner Dx/Rx/DC Orders Clinical Impression: Pain of left forearm, Muscle spasm Prescriptions: New diazepam [diazepam] 5 mg tablet 5 mg PO Q8 PRN (Reason: Muscle Spasm) Qty: 12 0RF No Action cyclobenzaprine 10 MG tablet 10 mg PO PRN PRN (Reason: Muscle Spasm) omeprazole 40 MG capsule,delayed release(DR/EC) 40 mg PO DAILY Qty: 30 0RF atorvastatin 10 mg Tablet 10 mg PO DAILY Primary Care Provider: Gary Olson NP Referrals: Primo Cervantes MD [Non-Staff] - Keep Francois appointment Gary Olson NP, MANAGER [employer] [Primary Care Provider] - Activity Restrictions/Additional Instructions: Keep appointment with Dr. cervantes as an outpatient. Stop your Flexeril. Use Valium as needed. Disposition Disposition: Home, Self Care Discharge Date/Time: 01/21/22 22:27
[2022-01-21 21:16] LABS: Anion Gap 5 (5-15); BUN 22 mg/dL (7-18); BUN/Creat Ratio 19.8 RATIO (10-20); Chloride 107 mmol/L (98-107); Creatinine, Serum 1.11 mg/dL (0.70-1.30); EST Glomerular Filtration Rate 81 mL/min (>60); Est Glom Filt Rate - Afr Amer 99 mL/min (>60); Estimated Creatinine Clearance 92.43 ml/min; Glucose 106 mg/dL (74-106); Potassium 3.8 mmol/L (3.5-5.1); Sodium Level 140 mmol/L (136-145)
== END 2022-01-21 22:27 | disposition home or self-care (01) ==
PROVIDERS: Emergency Provider Emergency Medicine; PCP Nurse Practitioner Family; Visit Provider Emergency Medicine
DX: M79.632 Pain in left forearm (principal); M62.838 Other muscle spasm; E78.00 Pure hypercholesterolemia, unspecified; Z79.899 Other long term (current) drug therapy; Z87.891 Personal history of nicotine dependence
CPT/HCPCS: 80048; 85025; 93005; 99282

== ENCOUNTER 2022-02-20 10:00 | Outpatient (RCR) | payer BC, SELFPAY ==
--- NOTE | 2022-02-09 10:05 | HP.PTEVAL ---
Patient's Visit Information AIXA GALLAGHER is a 31 year old M referred to Physical Therapy by Dr. Primo Cervantes MD with a diagnosis of vertigo, Cervicalgia. Date of Evaluation: 02/09/22 Physical Therapist: KALEN Hamlin - Visit Plan Frequency: 2x /Week Duration: 4 Weeks Plan: 2X/ week for 4 weeks for light MT to the c-spine musculature, smooth pursuit and vestibular inputs, postural exercises, with US HEP - Subjective Pt reports that he gets several kinds of dizziness. One is induced by panic and sensory overload cause his vision gets blurry and this has been going on for 3 years now. When he has these episodes are when he is around a lot of light and around a lot of people. It tends to send him into overload. He has never had seizure but the Dr keeps asking if he has had one. He fights nausea everyday. This all started 5 years ago. He was a heavy drinker and smoker and heavier at the time with a stressful job. He has never been the same since December 04, 2016. He gets so many OROSCO cause he has constant OROSCO. They have done brain MRI's. Another kind of dizziness is what the Dr says is vaso vegal but he does not think so. What is happening is that he has some kind of autoimmune disease or something and been checked out by several cardiologists and he is fine. 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 The Dr theory that a nerve is getting pinched and getting a vaso vegal response and he did check his BP one time and it was fine. The Dr did a neuo exam and has R eye vertigo and that is why he is here today. He feels that he has more going on than that. He has not dizziness when rolling over in bed. Squatting at the knees and bending over increases his dizziness. When he gets up from a squatting he gets a light headed feeling that lasts 10 seconds. Rahat,ax is helping with the OROSCO are like a band around his head in the back and front and some behind his ears. He will get a rapid pain like a rapid inflation of a balloon in his head and lasts 1-2 minutes and then stops and occurs a few times a week. He reports that his balance is not bad. C-spine pain is always there and always neck pain and trap pain. Pt feels that he is not as strong as what he used to be... he reports that the Dr says that he is not weaker on one side versus the other side but he feels that the L side is heavier. - Pain L sided body pain Pain Intensity (Out of 10): 3 Pain Intensity Range: 6 Comment: he has pain 24/7 OROSCO Pain Intensity (Out of 10): 2 C-spine pain Pain Intensity (Out of 10): 3 - Objective Gait: walks with normal gait pattern. Walking and turning 180 degrees fast X 3 attempts with no increase in dizziness. Walking with horizontal head turns causes increase in dizziness and nausea feeling. Walking with vertical head turns does not increase his dizziness. C-spine AROM: flex 100%, Ext 50% (pt reports increase in nausea), ROT B 75%, SB B 80%. Horizontal smooth pursuit: smooth motion X 30 seconds. Vertical smooth pursuit: Slight jumpiness and a little bit of dizziness and slight pressure in his eyes X 30 seconds. Head and eyes move together horizontal: slight off feeling X 30 seconds. Head and eyes move together vertical: slight off feeling X 30 seconds. Eyes focused and head move horizontal: Eyes burry and no dizziness X 30 seconds. Eyes focused and head move vertical: No issue X 30 seconds. CATSIB: 120/120 - Balance/Special Test Scores CATSIB Score (Max score 120 seconds): 120 Dizziness Score: 46 - Goals Goal 1:: I HEP Goal Time Frame: 2-4 Weeks Goal 2:: Decrease freq of OROSCO and dizziness by 50% Goal Time Frame: 2-4 Weeks Goal 3:: Increase vertical and horizontal smooth pursuit with no dizziness for 1 min in standing and sitting Goal Time Frame: 2-4 Weeks Goal 4:: Increase C-spine AROM to 100% with no pain - Rehabilitation Potential Rehabilitation Potential: Good - Anticipated Interventions Patient/Client Instruction: Educate patient on: Condition, Plan of Care For the Purpose of:: To decrease pain, To improve nutrient delivery to tissue, To increase oxygenation perfusion, To improve muscle performance and motor function, To improve ability to perform ADL's, To increase tolerance to activity/condition/position, To improve performance and independence with ADL's, To decrease level of supervision to perform tasks, To improve ability of physical actions for home/community/work/leisure, To improve health of tissue, To decrease soft tissue restriction, To increase flexibility/ROM Therapeutic Exercise to Include: Strength training, Postural training, Flexibilty training, Neuromotor development, Passive ROM, Active ROM, Scapular Strength/Stabilization For the Purpose of:: To decrease pain, To increase ROM, To improve nutrient delivery to tissue, To increase oxygenation perfusion, To improve muscle performance and motor function, To increase tolerance to activity/condition/position, To improve performance and independence with ADL's, To decrease level of supervision to perform tasks, To improve ability of physical actions for home/community/work/leisure, To improve health of tissue, To decrease soft tissue restriction, To increase flexibility/ROM Manual Therapy Techniques to Include: Passive ROM, Soft tissue mobilization For the Purpose of:: To decrease pain, To increase ROM, To improve nutrient delivery to tissue, To improve muscle performance and motor function, To improve ability to perform ADL's, To increase tolerance to activity/condition/position, To improve performance and independence with ADL's, To decrease level of supervision to perform tasks, To improve ability of physical actions for home/community/work/leisure, To improve health of tissue, To decrease soft tissue restriction, To increase flexibility/ROM Thermo therapy (hot pack): Yes Ultrasound (thermal/non thermal): Yes For the Purpose of:: To decrease pain, To increase ROM, To improve nutrient delivery to tissue, To improve muscle performance and motor function, To improve ability to perform ADL's, To improve performance and independence with ADL's, To improve health of tissue, To decrease soft tissue restriction, To increase flexibility/ROM Thank you for the opportunity to evaluate your patient. For Medicare and Medicare HMO plans, please review the plan of care and approve it. It will need to be FAXED BACK to us at [phone] for Medicare purposes. For Medicare only, by signing this I certify the plan of care. Please let me know if there are questions or concerns regarding this plan of care. Physician Signature: Date:
--- NOTE | 2022-03-10 10:47 | HP.PT.NRP ---
AIXA GALLAGHER was seen in my office for initial evaluation on 02/09/22. The following Plan of Care was established for this patient: Initial Frequency: 2x /Week Initial Duration: 4 Weeks Patient/Client Instruction: Educate patient on: Condition, Plan of Care For the Purpose of:: To decrease pain, To improve nutrient delivery to tissue, To increase oxygenation perfusion, To improve muscle performance and motor function, To improve ability to perform ADL's, To increase tolerance to activity/condition/position, To improve performance and independence with ADL's, To decrease level of supervision to perform tasks, To improve ability of physical actions for home/community/work/leisure, To improve health of tissue, To decrease soft tissue restriction, To increase flexibility/ROM Therapeutic Exercise to Include: Strength training, Postural training, Flexibilty training, Neuromotor development, Passive ROM, Active ROM, Scapular Strength/Stabilization For the Purpose of:: To decrease pain, To increase ROM, To improve nutrient delivery to tissue, To increase oxygenation perfusion, To improve muscle performance and motor function, To increase tolerance to activity/condition/position, To improve performance and independence with ADL's, To decrease level of supervision to perform tasks, To improve ability of physical actions for home/community/work/leisure, To improve health of tissue, To decrease soft tissue restriction, To increase flexibility/ROM Manual Therapy Techniques to Include: Passive ROM, Soft tissue mobilization For the Purpose of:: To decrease pain, To increase ROM, To improve nutrient delivery to tissue, To improve muscle performance and motor function, To improve ability to perform ADL's, To increase tolerance to activity/condition/position, To improve performance and independence with ADL's, To decrease level of supervision to perform tasks, To improve ability of physical actions for home/community/work/leisure, To improve health of tissue, To decrease soft tissue restriction, To increase flexibility/ROM Thermo therapy (hot pack): Yes Ultrasound (thermal/non thermal): Yes For the Purpose of:: To decrease pain, To increase ROM, To improve nutrient delivery to tissue, To improve muscle performance and motor function, To improve ability to perform ADL's, To improve performance and independence with ADL's, To improve health of tissue, To decrease soft tissue restriction, To increase flexibility/ROM This patient was last seen in our office 02/12/22. Pertinent comments regarding their Physical therapy will appear below: JASPREET PT at this time as pt has no showed for his remaining appts. At this point I will be discontinuing this patient from physical therapy. I would be happy to see this patient again in the future if found appropriate by the physician. Thank you! Rosetta Olguin, KALEN Balance/Gait/Functional tests - Balance/Special Test Scores CATSIB Score (Max score 120 seconds): 120 Dizziness Score: 46
== END 2022-02-20 19:00 | disposition home or self-care (01) ==
LOC: PT 10:00
PROVIDERS: PCP Nurse Practitioner Family; Referring Provider Psychiatry & Neurology Neurology; Visit Provider Psychiatry & Neurology Neurology
DX: R42 Dizziness and giddiness (principal); M54.2 Cervicalgia
CPT/HCPCS: 97110; 97140; 97161

== ENCOUNTER → 2022-03-16 | Outpatient (CLI) | payer OTHER, SELFPAY ==
--- NOTE | 2022-03-16 09:53 | ART_ITS ---
Reason For Study: evaluate for thoracic outlet syndrome Procedure A bilateral upper extremity continuous wave Doppler with analog waveform analysis and segmental pressures. Left Segmental Pressures Left brachial= 128mmHg. Left forearm by way of the radial artery = 113mmHg. Left radial= 138mmHg. Left ulnar= 150mmHg. Left digit = 121 mmHg. Right Segmental Pressures Right brachial= 123mmHg. Right forearm pressure by way of the radial artery = 125mmHg. Right radial= 144mmHg. Right ulnar= 140mmHg. Right digit = 121 mmHg. The right radial waveforms are triphasic. The right ulnar waveforms are triphasic. Indices The right wrist-brachial index is 1.13. The right digital-brachial index is .95. The left wrist- brachial index is 1.17. The left digital-brachial index is .95. VL/Upper Extremity Arterial Study Interpretation Summary Right wrist-brachial index 1.13, normal. PVR/Doppler waveforms normal at rest. No change in right upper extremity waveforms with maneuvers. Left wrist-brachial index 1.17, normal. PVR/Doppler waveforms normal at rest. No change in left upper extremity waveforms with maneuvers. Ordering Physician: Evert Reyes Referring Physician: EVERT MOBLEY MD Performed By: Clifford Bui RVT
== END | disposition home or self-care (01) ==
PROVIDERS: PCP Nurse Practitioner Family; Referring Provider Surgery Trauma Surgery; Visit Provider Surgery Trauma Surgery
DX: G54.0 Brachial plexus disorders (principal)
CPT/HCPCS: 93923

== ENCOUNTER → 2022-04-08 | Outpatient (CLI) | payer OTHER, SELFPAY ==
--- NOTE | 2022-04-08 17:50 | CT_ITS ---
EXAM: CT ANGIOGRAPHY NECK WITHOUT AND WITH INTRAVENOUS CONTRAST CLINICAL INDICATION: THORACIC OUTLET SYNDROME TECHNIQUE: Routine carotid CT angiography protocol was performed without and with intravenous contrast. Nascet criteria using the distal ICAs for comparison were used for evaluation of stenoses. This CT exam was performed using one or more of the following dose reduction techniques: automated exposure control, adjustment of the mA and/or kV according to patient size, and/or use of iterative reconstruction technique. This report was created using Nonpareil report generation technology. MIP reconstructed images were created and reviewed. CONTRAST: 150ML OF ISOVUE 370 RADIATION DOSE: CTDIvol = 22.71 mGy, DLP = 2504.74 mGy-cm COMPARISON: None. FINDINGS: VASCULATURE: RIGHT COMMON CAROTID ARTERY: Unremarkable. No occlusion or significant stenosis. No dissection. RIGHT INTERNAL CAROTID ARTERY: Unremarkable. Extracranial segment is patent with no occlusion or significant stenosis. No dissection. RIGHT EXTERNAL CAROTID ARTERY: Unremarkable. No occlusion. RIGHT VERTEBRAL ARTERY: Unremarkable. No occlusion or significant stenosis. No dissection. LEFT COMMON CAROTID ARTERY: Unremarkable. No occlusion or significant stenosis. No dissection. LEFT INTERNAL CAROTID ARTERY: There are no acute findings of the right and left internal carotid artery. ALL ABOVE CRITERIA BY NASCET. Extracranial segment is patent with no occlusion or significant stenosis. No dissection. LEFT EXTERNAL CAROTID ARTERY: Unremarkable. No occlusion. LEFT VERTEBRAL ARTERY: Unremarkable. No occlusion or significant stenosis. No dissection. GREAT VESSELS OF AORTIC ARCH: Unremarkable. Normal anatomy, patent. NECK: BONES/JOINTS: There is no evidence for thoracic outlet syndrome. SOFT TISSUES: Unremarkable. LUNG APICES: Clear. CAROTID STENOSIS REFERENCE USING NASCET CRITERIA: % ICA stenosis = (1 - narrowest ICA diameter/diameter of distal cervical ICA) x 100. Mild - <50% stenosis. Moderate - 50-69% stenosis. Severe - 70-94% stenosis. Near occlusion - 95-99% stenosis. Occluded - 100% stenosis. CT/CTA Neck W/WO Contrast IMPRESSION: 1. There is no evidence for thoracic outlet syndrome. 2. There are no acute findings of the right and left internal carotid artery. ALL ABOVE CRITERIA BY NASCET. Electronically Signed: Luis E Ling MD at 19:42 EST ,
== END | disposition home or self-care (01) ==
PROVIDERS: PCP Nurse Practitioner Family; Visit Provider Nurse Practitioner Family
DX: G54.0 Brachial plexus disorders (principal); G56.90 Unspecified mononeuropathy of unspecified upper limb
CPT/HCPCS: 70498; Q9967

== ENCOUNTER 2022-06-20 18:34 | Emergency (ER) | payer OTHER, SELFPAY ==
[2022-06-20 18:35] VITALS: BP 133/84; PULSE 95; RESP 18; TEMP 35.6; O2SAT 96; BMI 28.3
[2022-06-20 18:49] VITALS: PULSE 87; RESP 13; O2SAT 98
--- NOTE | 2022-06-20 18:50 | ED.RN ---
per Dr. Jones, visual acuity not necessary at this time
--- NOTE | 2022-06-20 18:52 | CT_ITS ---
INDICATION: visual changes, headaches EXAMINATION: CT BRAIN - CT Head or Brain W/O Contrast Injection TECHNIQUE: Multiple axial images were obtained of the head without intravenous contrast. A radiation dose optimization technique was used for this scan. IV Contrast dosage and agent: None. COMPARISON: CT brain noncontrast 10/19/2017 FINDINGS: BRAIN PARENCHYMA: No intra- or extra-axial hemorrhage. No evidence of acute infarct. No intracranial mass or mass effect. There is preservation of the michele/white matter interface. Posterior fossa structures are unremarkable. 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 CSF SPACES: Appropriate for age. No hydrocephalus. CALVARIUM, SKULL BASE, PARANASAL SINUSES AND MASTOID AIR CELLS: Moderate mucosal thickening of the right maxillary, minimal mucosal thickening of the left maxillary sinus consistent with chronic disease.. No discrete lytic or blastic abnormalities. ORBITS: Both globes, extraocular muscles, optic nerves and retrobulbar fat appear unremarkable. ASPECTS Score for Acute Strokes: 10 CT/Brain/Head without Contrast IMPRESSION: There is no acute intracranial pathology. Chiari I malformation. Chronic sinus inflammation. Electronically Signed: Miryam Scott MD at 19:47 EST Reading Location ID and State: , Service support ,
--- NOTE | 2022-06-20 18:52 | EKG12_ITS ---
Test Reason : NEAR SYNCOPE Blood Pressure : / mmHG Vent. Rate : 087 BPM Atrial Rate : 087 BPM P-R Int : 138 ms QRS Dur : 088 ms QT Int : 372 ms P-R-T Axes : 072 070 045 degrees QTc Int : 447 ms Normal sinus rhythm Normal ECG Confirmed by JARON RICH, BRANDYN ([id number]), copy editor FRANCISCO JAVIER GALEAS ([id number]) on 06/22/2022 10:48:14 AM Referred By: PL Confirmed By:BRANDYN SALMERON MD
--- NOTE | 2022-06-20 18:53 | EX.ED.DYSGE1 ---
HPI History of Present Illness Chief Complaint: Syncope Informant: patient Narrative Narrative: Patient presents with multiple occurrences this afternoon. He states he was standing and cooking. He got symptoms where he felt like his vision went completely black for just a split second. He states it was almost like a blank that was long. This happened a few times. He also got very anxious. He got tingling of his hands that is worse than his chronic tingling. He felt like he might pass out or had a sense of dread also. He is not having the symptoms now. He felt fine prior to them. He denies a history of anxiety. He does take trazodone at night for sleep. Patient also has chronic bilateral arm pain and tingling that is no different than normal. He did have some increase of the tingling during this event though. He states he gets chronic headaches but was not having headache with this event. He does not have a headache now. [facility] Medical History High cholesterol Home Medications atorvastatin 10 mg tablet 10 mg PO DAILY 11/18/21 [History Last Taken Unknown] trazodone 50 mg tablet mg 06/20/22 [History Last Taken Unknown] Allergy/AdvReac Type Severity Reaction Status Date / Time No Known Allergies Allergy Verified 06/20/22 18:35 Family History Other Arthritis Asthma CVA (cerebral vascular accident) Cancer Heart disease High cholesterol Hypertension Lupus Thyroid disorder Surgical History [place] teeth extracted Social History current occupational status: employed Smoking Status: Current some day smoker tobacco type: cigarettes ROS ROS ED Constitutional Constitutional ED: Denies chills, fever(s), subjective or sweats Eyes Eyes: Reports change in vision ENT ENT ED: Denies rhinorrhea or sore throat Cardiovascular Cardiovascular: Denies chest pain, palpitations or racing heartbeat Respiratory/Chest Respiratory/Chest: Denies cough or dyspnea Gastrointestinal Gastrointestinal: Denies nausea or vomiting Genitourinary Genitourinary ED: Reports other Details: No urinary incontinence Musculoskeletal Musculoskeletal: Denies myalgias Integumentary Denies Abrasions or rash Neurologic Neurologic: Reports paresthesias; Denies headache(s) or weakness Psychiatric Psychiatric: Denies anxiety Endocrine Endocrinology: Denies polydipsia or polyuria Hematologic/Lymphatic Hematologic/Lymphatic: Denies easy bleeding, easy bruising or lymphadenopathy Allergic/Immunologic Allergic/Immunologic ED: Denies urticaria EXAM Physical Exam Const Vital Signs: 06/20/22 18:35 06/20/22 18:49 Temperature 96.1 F L Temperature Source Temporal Pulse Rate 95 87 Respiratory Rate 18 13 Blood Pressure 133/84 H Blood Pressure Mean 100 Pulse Ox 96 98 Oxygen Delivery Method Room Air Room Air Positive well nourished and well developed General Appearance ED: well developed and NAD HEENT Reports moist mucous membranes Eyes Eyes Narrative: Eyes have been normal full range of motion with no asynchronous motion. Pupils are equal reactive and accommodate. Funduscopic exam is normal on both eyes. There is no photophobia. There is no lid lag. General Eye ED: Negative for pale conjunctiva or scleral icterus Neck no lymphadenopathy and supple Chest Wall inspection of chest normal and palpation of chest normal Resp normal respiratory effort and clear to auscultation bilaterally Cardio regular rate and regular rhythm Rhythm: Negative for abnormal rhythm GI normal to inspection, nondistended, normoactive bowel sounds, non-tender and non-distended Palpation: soft; Negative for tender Back/Spine no CVA tenderness Extremity normal to inspection Neuro oriented x3 Neuro Narrative: NIH is 0. Despite a history of tingling and pain in his extremities his range of motion and sensation is normal. Psych mental status grossly normal Skin no rashes or lesions noted MDM MDM MDM Narrative Medical decision making narrative: My independent interpretation of the patient's CT scan of the head without contrast showed no acute process mass or bleeding. Official reading also showed no acute process but they did make note of Chiari I malformation that is unchanged. CBC and electrolytes show no marked abnormalities. Patient's recheck. He has not had further symptoms here. This could have been a near syncopal episode where his vision went. He may have also had an anxiety episode since he did have a sense of anxiety, doom and tingling that was worse than normal in his fingers. But in either case I think he can go home. He will follow-up with his private physician. We discussed that he may end up needing a Holter monitor type recorder. We discussed reasons to return. Lab Data Attestation: I reviewed the patient's lab results. Labs: Laboratory Results - last 24 hr 06/20/22 06/20/22 18:45 18:45 WBC 7.4 RBC 5.09 Hgb 15.5 Hct 46.6 MCV 91.6 MCH 30.5 MCHC 33.3 RDW Std Deviation 39.9 RDW Coeff of Fede 11.9 Plt Count 283 MPV 9.2 Immature Gran % (Auto) 0.400 Neut % (Auto) 58.3 Lymph % (Auto) 32.8 Hubbard % (Auto) 6.9 Eos % (Auto) 1.2 Baso % (Auto) 0.4 Absolute Neuts (auto) 4.3 Absolute Lymphs (auto) 2.44 Nucleated RBC % 0 Sodium 142 Potassium 3.9 Chloride 111 H Carbon Dioxide 28.0 Anion Gap 3 L BUN 15 Creatinine 0.94 Estim Creat Clear Calc 109.15 Est GFR (MDRD) Af Amer 118 Est GFR (MDRD) Non-Af 98 BUN/Creatinine Ratio 15.9 Glucose 91 Calcium 8.6 Radiography Diagnostic Testing: Clinical Impression(s) from Imaging Studies Brain CT 06/20/22 18:52 IMPRESSION: There is no acute intracranial pathology. Chiari I malformation. Chronic sinus inflammation. Electronically Signed: Miryam Scott MD at 19:47 EST Reading Location ID and State: , Service support , EKG Initial EKG: Comments: My independent interpretation of the patient's EKG for the near syncope shows normal sinus rhythm with overall rate of 87. No ectopy. No acute ST elevation or depression. OH interval, QRS duration and QTc are all normal. The EKG is similar to 21 January 2022 Discharge Plan Triage Chief Complaint: Syncope Other Complaint: Upper Extremity Injury Vision Prob ED Provider: Lobo Jones Dx/Rx/DC Orders Clinical Impression: Near syncope, Transient visual disturbance, bilateral Instructions: ED Near-Fainting, Uncertain Cause Prescriptions: No Action atorvastatin 10 mg Tablet 10 mg PO DAILY trazodone 50 mg tablet Label Comments: TAKE 1 TABLET BY MOUTH NIGHTLY NEEDED FOR SLEEP Primary Care Provider: Care Physician,No Primary Referrals: Gary Olson [employer], [employer] [Non-Staff] - 3-5 Days Disposition Disposition: Home, Self Care
[2022-06-20 19:00] LABS: Absolute Lymphocyte Count 2.44 X10^3/uL (0.83-4.51); Absolute Neutrophil Count 4.3 X10^3/uL (2.0-7.7); Basophil# 0.03 X10^3/uL; Basophil% 0.4 % (0-1); Eosinophil# 0.09 X10^3/uL; Eosinophils% 1.2 % (0-5); Hematocrit 46.6 % (40-54); Hemoglobin 15.5 g/dL (13.0-16.5); Lymphocyte # 2.44 X10^3/ul (0.83-4.51); Lymphocyte % 32.8 % (19-41); Mean Corp Hgb Conc 33.3 g/dL (32-36); Mean Corpuscular Hgb 30.5 pg (27.0-32.0); Mean Corpuscular Volume 91.6 fL (80-94); Mean Platelet Vol. 9.2 fl (6.2-12.0); Monocyte# 0.51 X10^3/uL; Monocyte% 6.9 % (0-10); NRBC Flagged by Analyzer 0 % (0-5); Neutrophil # 4.33 X10^3/uL (2.7-7.7); Neutrophil % 58.3 % (47-70); Platelet Count 283 K/mm3 (150-450); RBC Distribution Width CV 11.9 % (11.6-14.6); RBC Distribution Width SD 39.9 fl (35.1-43.9); Red Blood Count 5.09 M/mm3 (4.6-6.2); White Blood Count 7.4 K/mm3 (4.4-11.0)
[2022-06-20 19:13] LABS: Anion Gap 3 (5-15); BUN 15 mg/dL (7-18); BUN/Creat Ratio 15.9 RATIO (10-20); Calcium,Total 8.6 mg/dL (8.5-10.1); Chloride 111 mmol/L (98-107); Creatinine, Serum 0.94 mg/dL (0.70-1.30); EST Glomerular Filtration Rate 98 mL/min (>60); Est Glom Filt Rate - Afr Amer 118 mL/min (>60); Estimated Creatinine Clearance 109.15 ml/min; Glucose 91 mg/dL (74-106); Potassium 3.9 mmol/L (3.5-5.1); Sodium Level 142 mmol/L (136-145)
[2022-06-20 20:07] VITALS: BP 127/79; PULSE 71; RESP 16
== END 2022-06-20 20:23 | disposition home or self-care (01) ==
PROVIDERS: Emergency Provider Emergency Medicine; Visit Provider Emergency Medicine
DX: R55 Syncope and collapse (principal); H53.8 Other visual disturbances; E78.00 Pure hypercholesterolemia, unspecified; F17.210 Nicotine dependence, cigarettes, uncomplicated; Z79.899 Other long term (current) drug therapy
CPT/HCPCS: 70450; 80048; 85025; 93005; 96360; 99284; J7040; A4216

== ENCOUNTER 2022-09-17 02:57 | Emergency (ER) | payer OTHER, SELFPAY ==
[2022-09-17 02:58] VITALS: BP 160/81; PULSE 104; RESP 16; TEMP 36.4; O2SAT 99; BMI 29.5
--- NOTE | 2022-09-17 03:11 | EDS_ITS ---
HPI History of Present Illness Chief Complaint: Headache Narrative Narrative: 32-year-old male here with headache. States headache has been going over the last month intermittently, worse tonight. Patient denies sudden onset or thunderclap headache, denies maximal intensity within 1 minute, vomiting, neck pain or stiffness, changes in vision, fever, history malignancy, syncope, seizures. No falls or recent trauma. No family history of connective tissue disorders. No fever or neck stiffness noted. No sick contacts. This is not the worst headache of the patient's life. [facility] Medical History High cholesterol Home Medications atorvastatin 10 mg tablet 10 mg PO DAILY 11/18/21 [History Last Taken Unknown] trazodone 50 mg tablet mg 06/20/22 [History Last Taken Unknown] metoclopramide HCl 5 mg tablet (Reglan) 5 mg PO .q8 prn PRN nausea and vomiting 7 days #21 tabs 09/17/22 [Rx Last Taken Unknown] Allergy/AdvReac Type Severity Reaction Status Date / Time No Known Allergies Allergy Verified 06/20/22 18:35 Family History Other Arthritis Asthma CVA (cerebral vascular accident) Cancer Heart disease High cholesterol Hypertension Lupus Thyroid disorder Surgical History [place] teeth extracted Social History current occupational status: employed Smoking Status: Current some day smoker tobacco type: cigarettes ROS ROS ED ROS Narrative Constitutional: Denies fever HEENT: Denies sore throat Neck: Denies neck pain, neck stiffness Cardiovascular: Denies chest pain, syncope Respiratory: Denies shortness of breath GI: Denies nausea vomiting or abdominal pain : Denies changes in urinary habits Musculoskeletal: Denies muscle or joint pain Neurologic: Denies numbness weakness or loss of sensation, endorses headache Skin denies rash EXAM Physical Exam Narrative Exam Narrative: Nursing triage notes reviewed, Vital signs reviewed Constitutional: please see mdm HENT: MMM Eyes: Pupils equal round and reactive to light, Extraocular muscles intact Neck: No stridor, no JVD, full neck ROM Lungs: Clear to auscultation, No wheezing or rales. No increased work of breathing, no conversational dyspnea, no accessory muscle use, no nasal flaring. No respiratory distress noted Heart: Regular rate and rhythm, No murmurs, No rubs and No gallops, 2+ distal pulses (radial, femoral, posterior tibial) in all extremities Abdomen: Soft, there is no tenderness, rigidity, rebound or guarding, no obvious peritoneal signs, no palpable pulsatile abdominal masses, no auscultated abdominal bruit : No CVAT Extremities: No edema Neuro: Alert and oriented x3, neuro exam at baseline, cranial nerves II through XII are intact. No pain with extraocular muscle movement. There is negative test of skew. Normal speech. 5 of 5 strength in upper and lower extremities in flexion extension. Intact sensation to light touch in upper and lower extremity dermatomes. No truncal or extremity ataxia. No dysdiadochokinesia. Normal gait. 2+ reflexes. No meningeal signs. Negative Babinski. NIH of 0 Skin: No rash or lesions noted Const Vital Signs: 09/17/22 02:58 Temperature 97.6 F L Temperature Source Temporal Pulse Rate 104 H Respiratory Rate 16 Blood Pressure 160/81 H Blood Pressure Mean 107 Pulse Ox 99 Oxygen Delivery Method Room Air MDM MDM MDM Narrative Medical decision making narrative: Chief Complaint: External records reviewed: CT scan of the brain from May 2022 shows no acute abnormality CT angiogram of the neck from March 2022 shows no evidence of vascular abnormality MRI of the from 2018 shows chiari 1 malformation but no obvious fluid accumulation, white matter changes, MDM: Patient was hemodynamically stable, afebrile, nontoxic-appearing. No red flag symptoms. He had a nonfocal neurologic exam. The patient looks great and is in no significant objective discomfort currently. The patient's headache is non-specific. Exam is unremarkable. The patient is in no distress and the patient?s neurological exam is non-focal, neck is supple and without meningismus. The headache is not consistent with meningitis or infection, nor is it consistent with intracranial bleed (SAH etc.), carotid dissection, nor mass by history and examination. Medication and outpatient follow-up was instructed. The patient was instructed to return as needed or if symptoms changed or worsened, fever developed or inability to tolerate fluids. The patient agreed with plan. Factors affecting care: Hyperlipidemia Social determinants of health: Current tobacco user History obtained from others: Shared decision making: I will have a discussion with the patient and or visitors regarding risk/smitha efits of further testing or admission. They will be made aware of of the risk/benefits inherent in this decision they will be given the opportunity to voice understanding. Consults: None Discharge Plan Triage Chief Complaint: Headache ED Provider: Preet Bonilla Dx/Rx/DC Orders Instructions: ED Headache, Tension Prescriptions: New metoclopramide HCl [Reglan] 5 mg tablet 5 mg PO .q8 prn PRN (Reason: nausea and vomiting) 7 Days Qty: 21 0RF No Action atorvastatin 10 mg Tablet 10 mg PO DAILY trazodone 50 mg tablet Label Comments: TAKE 1 TABLET BY MOUTH NIGHTLY NEEDED FOR SLEEP Stand Alone Forms: ED Work / School Excuse Primary Care Provider: CARMELA TAMEZ Referrals: [facility] Doctor,Out of [Non-Staff] - Activity Restrictions/Additional Instructions: Thank you for trusting us with your care today! Please take Tylenol (2 pills, 650 mg), ibuprofen (2 pills, 400 mg) every 6 hours as needed for pain and fever control. Please take Reglan as prescribed for additional headache control. Please follow-up with your neurologist in the next able appointment for further outpatient evaluation and treatment. Please return to the emergency department if your symptoms change or worsen. Please follow with your primary care physician for further outpatient evaluation and management. Disposition Disposition: Home, Self Care
[2022-09-17] MEDS: Metoclopramide 10 MG/2 ML Vial 5 MG IV (03:32)
[2022-09-17] MEDS: Ketorolac 15 MG/ML Vial IV (03:32)
[2022-09-17] MEDS: dexAMETHasone 4 MG/ML Vial IV (03:32)
[2022-09-17] MEDS: 0.9% Normal Saline 1,000 ML 999 ML IV (03:32)
[2022-09-17] MEDS: Acetaminophen 325 MG Tablet 650 MG PO (03:33)
== END 2022-09-17 04:34 | disposition home or self-care (01) ==
PROVIDERS: Emergency Provider Emergency Medicine; Visit Provider Emergency Medicine
DX: R51.9 Headache, unspecified (principal); E78.00 Pure hypercholesterolemia, unspecified; F17.210 Nicotine dependence, cigarettes, uncomplicated
CPT/HCPCS: 96361; 96374; 96375; 99284; J7030; A4216

== ENCOUNTER 2024-06-08 19:48 | Emergency (ER) | payer SELFPAY ==
[2024-06-08] VITALS (9 sets, daily range): BP systolic 103–141; BP diastolic 71–94; PULSE 67–84; RESP 15–21; TEMP 36.5–36.6; O2SAT 97–99; BMI 34.3
--- NOTE | 2024-06-08 20:40 | EKG12_ITS ---
Test Reason : DYSRHYTHMIA Blood Pressure : */* mmHG Vent. Rate : 69 BPM Atrial Rate : 69 BPM P-R Int : 142 ms QRS Dur : 92 ms QT Int : 398 ms P-R-T Axes : 65 57 36 degrees QTcB Int : 426 ms Normal sinus rhythm Normal ECG Confirmed by Keyon Rainey ([id number]), slot editor FRANCISCO JAVIER GALEAS ([id number]) on 06/09/2024 9:38:55 AM Referred By: ES Confirmed By: Keyon Rainey
--- NOTE | 2024-06-08 20:43 | EX.ED.DYSGE1 ---
HPI History of Present Illness Chief Complaint: Chest Pain Informant: patient Onset/Context/Timing Onset: Today Context: Sudden Onset Timing: Intermittent Quality: Spasm Location: Substernal and left parasternal area Worsened by: Standing Relieved by: Nothing Narrative Narrative: Patient presents with chest pain and spasms that began today while he was at work. Patient states it began rather suddenly. Patient states it has been intermittent. Patient states it is over the substernal area and left parasternal area. Patient states it is worse with standing. Patient admits to some nausea but denies any vomiting. Patient states he has felt clammy with this. Patient is to some slight shortness of breath and lightheadedness. Patient denies any cough or fevers. Patient denies any palpitations. [facility] Medical History High cholesterol Home Medications ?Medication ?Instructions ?Recorded ?Last Taken ?Type atorvastatin 10 mg tablet 10 mg PO DAILY 11/18/21 Unknown History Allergy/AdvReac Type Severity Reaction Status Date / Time No Known Allergies Allergy Verified 06/08/24 19:52 Family History Other Arthritis Asthma CVA (cerebral vascular accident) Cancer Heart disease High cholesterol Hypertension Lupus Thyroid disorder Surgical History [place] teeth extracted Social History current occupational status: employed Smoking Status: Former smoker ROS ROS ED Constitutional Constitutional ED: Reports chills and subjective; Denies fever(s) Eyes Eyes: Denies blurry vision or change in vision ENT ENT ED: Denies rhinorrhea or sore throat Cardiovascular Cardiovascular: Reports chest pain; Denies palpitations Respiratory/Chest Respiratory/Chest: Reports dyspnea; Denies cough Gastrointestinal Gastrointestinal: Reports nausea; Denies vomiting Genitourinary Genitourinary ED: Reports urinary frequency; Denies dysuria or hematuria Musculoskeletal Musculoskeletal: Reports back pain; Denies neck pain Integumentary Denies abscess or rash Neurologic Neurologic: Reports headache(s); Denies weakness Allergic/Immunologic Allergic/Immunologic ED: Denies mouth swelling or urticaria EXAM Physical Exam Const Vital Signs: 06/08/24 19:49 06/08/24 20:16 06/08/24 20:30 Temperature 97.7 F L Temperature Source Oral Pulse Rate 83 84 75 Respiratory Rate 16 16 16 Blood Pressure 141/94 H 121/78 H Blood Pressure Mean 109 92 Pulse Ox 99 99 97 Oxygen Delivery Method Room Air 06/08/24 20:45 06/08/24 20:48 06/08/24 21:00 Temperature Temperature Source Pulse Rate 78 79 Respiratory Rate 15 18 Blood Pressure 121/78 H 103/82 H Blood Pressure Mean 92 88 Pulse Ox 97 99 Oxygen Delivery Method Room Air 06/08/24 21:05 06/08/24 22:00 Temperature Temperature Source Pulse Rate 74 67 Respiratory Rate 21 H 15 Blood Pressure 124/73 H Blood Pressure Mean 90 Pulse Ox 97 97 Oxygen Delivery Method Room Air Positive well nourished and well developed General Appearance ED: well developed and NAD HEENT Reports moist mucous membranes Neck supple and no JVD Chest Wall inspection of chest normal and palpation of chest normal Resp normal respiratory effort and clear to auscultation bilaterally Cardio regular rate and regular rhythm GI non-tender and non-distended Palpation: soft Extremity normal to inspection General Extremety ED: Negative for edema or tenderness General Extremity: Negative for edema Neuro oriented x3, CN's II-XII intact bilaterally and no sensory deficits noted Sensorium / Orientation: alert Motor Exam: strength 5/5 throughout Psych mental status grossly normal MDM MDM MDM Narrative Medical decision making narrative: Differential diagnosis includes cardiac dysrhythmia, cardiac ischemia, pneumonia, pneumothorax, electrolyte abnormality, viral illness, gastroesophageal reflux disease, and anxiety. EKG will be obtained to assess for cardiac dysrhythmia and cardiac ischemia. Chest x-ray will be obtained to assess for pneumonia and pneumothorax. CBC will be obtained to assess for leukocytosis and anemia. Basic metabolic profile will be obtained to assess for blood clot abnormality and renal function. High-sensitivity troponin will be obtained to assess for cardiac ischemia. COVID-19, influenza, and RSV PCR will be obtained to assess for viral illness. Lab Data Attestation: I reviewed the patient's lab results. Lab results narrative: CBC was reviewed and was within normal limits. Basic metabolic profile was reviewed. BUN was slightly elevated at 19 and creatinine was slightly elevated at 1.34. High-sensitivity troponin was reviewed and was normal at 4. COVID-19 PCR was reviewed and was negative. Influenza PCR was reviewed and was negative for influenza A and influenza B. RSV PCR was reviewed and was negative. Labs: Laboratory Results - last 24 hr 06/08/24 20:16 WBC 8.5 RBC 4.94 Hgb 14.8 Hct 44.1 MCV 89.3 MCH 30.0 MCHC 33.6 RDW Std Deviation 40.6 RDW Coeff of Fede 12.5 Plt Count 261 MPV 9.7 Immature Gran % (Auto) 0.400 Neut % (Auto) 69.0 Lymph % (Auto) 23.3 [place] % (Auto) 6.3 Eos % (Auto) 0.8 Baso % (Auto) 0.2 Absolute Neuts (auto) 5.9 Absolute Lymphs (auto) 1.98 Nucleated RBC % 0 Sodium 140 Potassium 3.6 Chloride 105 Carbon Dioxide 29.0 Anion Gap 6 BUN 19 H Creatinine 1.34 H Estim Creat Clear Calc 90.14 Est GFR (MDRD) Af Amer 78 Est GFR (MDRD) Non-Af 65 BUN/Creatinine Ratio 14.2 Glucose 109 H Calcium 8.8 Troponin I High Sens 4 Radiography Chest X-Ray - ED: 2 View, Read by ED Physician, Read by Radiologist and No Acute Disease Diagnostic Testing: Clinical Impression(s) from Imaging Studies Chest X-Ray 06/08/24 21:00 IMPRESSION: No radiographic evidence of acute cardiopulmonary disease. Electronically Signed: Hosea Kang DO at 21:57 EST , PA and lateral chest x-ray was obtained. There are 2 views. On my independent interpretation, lung moore are clear. There is normal cardiac silhouette. Bony thorax is normal. There is no acute process noted. Radiologist also interpreted the x-ray and agrees. EKG Initial EKG: Attestation: I personally reviewed and interpreted this EKG as follows: Interpretation: Sinus Rhythm (69) and No Acute Injury Pattern Comments: EKG was obtained. On my independent interpretation, it showed a normal sinus rhythm with a rate of 69. MS interval, QRS interval, and QTc intervals were all normal. [place] was normal. There are no acute ST or T wave changes. Prior EKG tracings: available for review Prior: Unchanged (06/20/2022) Treatment and Re-Evaluation :: Patient was given IV fluids. Patient is feeling better on reevaluation. Patient was advised of his findings. Patient was instructed to drink plenty of fluids. Patient was instructed Tylenol or ibuprofen as needed for pain. Patient was instructed to return if worse in any way. Patient understood and was agreeable with the plan. All questions were answered. Discharge Plan Triage Chief Complaint: Chest Pain ED Provider: Evret Augustine Dx/Rx/DC Orders Clinical Impression: Chest pain, Elevated blood pressure reading without diagnosis of hypertension Instructions: ED Chest Pain, Uncertain Cause Prescriptions: No Action atorvastatin 10 mg Tablet 10 mg PO DAILY Stand Alone Forms: Work / School Excuse Primary Care Provider: Liana Klein Referrals: Liana Klein MD [Primary Care Provider] - 5-7 Days Print Language: Gibraltarian Disposition Disposition: Home, Self Care
[2024-06-08] MEDS: 0.9% Normal Saline (1000mL) 1,000 ML 1000 ML IV (20:54)
[2024-06-08 20:56] LABS: Absolute Lymphocyte Count 1.98 X10^3/uL (0.83-4.51); Absolute Neutrophil Count 5.9 X10^3/uL (2.0-7.7); Basophil# 0.02 X10^3/uL; Basophil% 0.2 % (0-1); Eosinophil# 0.07 X10^3/uL; Eosinophils% 0.8 % (0-5); Hematocrit 44.1 % (40-54); Hemoglobin 14.8 g/dL (13.0-16.5); Lymphocyte # 1.98 X10^3/ul (0.83-4.51); Lymphocyte % 23.3 % (19-41); Mean Corp Hgb Conc 33.6 g/dL (32-36); Mean Corpuscular Volume 89.3 fL (80-94); Mean Platelet Vol. 9.7 fl (6.2-12.0); Monocyte# 0.54 X10^3/uL; Monocyte% 6.3 % (0-10); NRBC Flagged by Analyzer 0 % (0-5); Neutrophil # 5.87 X10^3/uL (2.7-7.7); Platelet Count 261 K/mm3 (150-450); RBC Distribution Width CV 12.5 % (11.6-14.6); RBC Distribution Width SD 40.6 fl (35.1-43.9); Red Blood Count 4.94 M/mm3 (4.6-6.2); White Blood Count 8.5 K/mm3 (4.4-11.0)
--- NOTE | 2024-06-08 21:00 | RAD_ITS ---
EXAM: XR CHEST, 2 VIEWS CLINICAL INDICATION: Chest pain TECHNIQUE: Frontal and lateral views of the chest. COMPARISON: 11/18/2021 FINDINGS: LUNGS AND PLEURAL SPACES: No significant abnormality. No consolidation or edema. No pneumothorax. No effusion. HEART: No significant abnormality. Cardiac silhouette not enlarged. MEDIASTINUM: Central airways and mediastinal contour are unremarkable. BONES/JOINTS: No significant abnormality. No acute fracture. SOFT TISSUES: No significant abnormality. RAD/Chest PA and Lateral IMPRESSION: No radiographic evidence of acute cardiopulmonary disease. Electronically Signed: Hosea Kang DO at 21:57 EST ,
[2024-06-08 21:18] LABS: Anion Gap 6 (5-15); BUN 19 mg/dL (7-18); BUN/Creat Ratio 14.2 RATIO (10-20); Calcium,Total 8.8 mg/dL (8.5-10.1); Chloride 105 mmol/L (98-107); Creatinine, Serum 1.34 mg/dL (0.70-1.30); EST Glomerular Filtration Rate 65 mL/min (>60); Est Glom Filt Rate - Afr Amer 78 mL/min (>60); Estimated Creatinine Clearance 90.14 ml/min; Glucose 109 mg/dL (74-106); Potassium 3.6 mmol/L (3.5-5.1); Sodium Level 140 mmol/L (136-145); Troponin-I HS 4 pg/mL (3.0-78.0)
== END 2024-06-08 22:49 | disposition home or self-care (01) ==
PROVIDERS: Emergency Provider Emergency Medicine; PCP Internal Medicine; Visit Provider Emergency Medicine
DX: R07.9 Chest pain, unspecified (principal); R03.0 Elevated blood-pressure reading, without diagnosis of hypertension; E78.00 Pure hypercholesterolemia, unspecified; R06.02 Shortness of breath; Z79.899 Other long term (current) drug therapy; Z87.891 Personal history of nicotine dependence
CPT/HCPCS: 71046; 80048; 84484; 85025; 87631; 93005; 96360; 96361; 99283; A4216

== ENCOUNTER 2024-07-31 19:25 | Emergency (ER) | payer BC, SELFPAY ==
[2024-07-31 19:26] VITALS: BP 133/92; PULSE 86; RESP 14; TEMP 36.8; O2SAT 99; BMI 34.9
--- NOTE | 2024-07-31 21:14 | EX.ED.UPPERE ---
HPI History of Present Illness Chief Complaint: Upper Extremity Injury [facility] Medical History High cholesterol Home Medications ?Medication ?Instructions ?Recorded ?Last Taken ?Type atorvastatin 10 mg tablet 10 mg PO DAILY 11/18/21 Unknown History Allergy/AdvReac Type Severity Reaction Status Date / Time No Known Allergies Allergy Verified 07/31/24 19:30 Family History Other Arthritis Asthma CVA (cerebral vascular accident) Cancer Heart disease High cholesterol Hypertension Lupus Thyroid disorder Surgical History [place] teeth extracted Social History current occupational status: employed Smoking Status: Former smoker EXAM Physical Exam Const Vital Signs: 07/31/24 19:26 Temperature 98.3 F Temperature Source Temporal Pulse Rate 86 Respiratory Rate 14 Blood Pressure 133/92 H Blood Pressure Mean 105 Pulse Ox 99 Oxygen Delivery Method Room Air MDM MDM MDM Narrative Medical decision making narrative: HISTORY OF PRESENT ILLNESS: 33-year-old male presents with left forearm pain started approximate 10 to 15 minutes ago. He notes associated nausea. No abdominal pain. No change in bowel or bladder habits. He states I feel like something bad is going to happen he notes history of anxiety. Notes this began 3 years ago. States was after he got the COVID shot. Notes more prominent veins of left arm. States pain is intermittent. No inciting event. No trauma or falls noted. No chest pain or shortness of breath or syncope. Patient denies active cancer, being bedridden for greater than 3 days, denies unilateral leg swelling, denies any varicose veins, denies any calf tenderness, denies tenderness along deep venous system. Denies major surgery within 12 weeks, recent paralysis, previous DVT. REVIEW OF SYSTEMS: Pertinent positives: Forearm pain Pertinent negatives: Chest pain or shortness of PHYSICAL EXAM: Nursing triage notes reviewed, Vital signs reviewed Constitutional: please see mdm Extremities: No edema, compartments are soft, no obvious deformity. Neurovascular intact left upper extremity Neuro: Intact 5/5 strength with ok sign (median), intact finger abduction (ulnar) intact wrist extension (radial n). Intact sensation in the radial, ulnar, and median nerve distributions. Skin: No rash or lesions noted, no erythema, no crepitus or bullae noted. MEDICAL DECISION MAKING: Chief Complaint: Left forearm pain MDM Narrative: Patient was initially hemodynamically stable, afebrile nontoxic-appearing. Exam unremarkable I considered the following differential diagnosis: Fracture, dislocation, compartment syndrome, cellulitis, necrotizing fasciitis, musculoskeletal injury There is no clinical evidence to suggest cellulitis, fasciitis, compartment syndrome The patient's DVT risk was low. As such I do not feel is indicated to obtain ultrasound this time. We agreed to obtain a screening x-ray ALL IMAGES (IF OBTAINED) HAVE BEEN PERSONALLY REVIEWED AND INTERPRETED BY MYSELF. X-ray left formal read reviewed per myself shows no evidence of obvious bony abnormality. The patient and/or family, caregivers express understanding. The patient and/or family, caregivers agrees with the plan. Shared decision making: I will have a discussion with the patient and or visitors regarding risk/benefits of further testing or admission. They will be made aware of of the risk/benefits inherent in this decision they will be given the opportunity to voice understanding. Total critical care time today provided was at least 0 minutes. This excludes separately billable procedures. Critical care time (if documented) is secondary to the patient having high probability of clinically significant/life threatening deterioration in the patient's condition which required my urgent intervention. Impression: 1. Acute left arm pain Dispo: discharge home This note was generated with [employer] dictation software. It may contain incorrect words, spelling, and punctuation that were not noted in review of the chart prior to signing. Discharge Plan Triage Chief Complaint: Upper Extremity Injury ED Provider: Preet Bonilla Dx/Rx/DC Orders Prescriptions: No Action atorvastatin 10 mg Tablet 10 mg PO DAILY Primary Care Provider: Liana Klein Referrals: Liana Klein MD [Primary Care Provider] - Activity Restrictions/Additional Instructions: Thank you for trusting us with your care today! Please take Tylenol (2 pills, 650 mg), ibuprofen (2 pills, 400 mg) every 6 hours as needed for pain and fever control. Please return to the emergency department if your symptoms change or worsen. Please take Zofran as needed for nausea. Please follow with your primary care physician for further outpatient evaluation and management. Specifically to obtain an outpatient ultrasound if your PCP thinks this is necessary Print Language: Greek Disposition Disposition: Home, Self Care
--- NOTE | 2024-07-31 22:00 | RAD_ITS ---
PROCEDURE: FOREARM 2 VIEWS REASON FOR EXAM: Pain TECHNIQUE: Two view(s) of left forearm COMPARISON: None. FINDINGS: No acute fracture or dislocation. No soft tissue abnormality. No radiopaque foreign body. RAD/Forearm 2 Views IMPRESSION: No acute fracture or dislocation. Reading Location: [facility]
[2024-07-31] MEDS: Ondansetron ODT 4 MG Tablet PO (22:59)
[2024-07-31 23:00] VITALS: BP 128/77; PULSE 81; RESP 16; TEMP 36.7; O2SAT 99
== END 2024-07-31 23:00 | disposition home or self-care (01) ==
PROVIDERS: Emergency Provider Emergency Medicine; PCP Internal Medicine; Visit Provider Emergency Medicine
DX: M79.602 Pain in left arm (principal); Z87.891 Personal history of nicotine dependence
CPT/HCPCS: 73090; 99282

== ENCOUNTER 2025-02-08 18:16 | Emergency (ER) | payer BC, SELFPAY ==
[2025-02-08 18:17] VITALS: BP 130/85; PULSE 85; RESP 18; TEMP 36.6; O2SAT 99; BMI 33.6
--- NOTE | 2025-02-08 18:30 | EDS_ITS ---
HPI History of Present Illness Chief Complaint: Chest Pain Narrative Narrative: Chief complaint and HPI: 34-year-old male with past medical history of anxiety not on medication, HLD presents for evaluation of chest pain. The onset of chest pain was prior to arrival while at work. Patient states that he was working when he developed chest tightness, palpitations, paresthesias in the bilateral hands, shortness of breath, lightheadedness. States it lasted approximately 10 minutes and then improved. Patient states he periodically has these episodes. States he has had it worked up in the past without any diagnosis. Patient states he used to take clonidine which helped with the e pisodes but that he was taken off of this. He does believe there is an anxiety component. He denies any fever, chills, abdominal pain, nausea, vomiting. Review of systems: See HPI Medications: As listed on the chart Allergies: As listed on the chart PFSH: Per chart Vital signs: As listed on the chart. Reviewed. Physical exam: Gen: A&O x3, NAD but anxious Head: Normocephalic, atraumatic Eyes: No sclera icterus, conjunctiva clear, PERRL ENT: Moist mucous membranes Neck: Trachea midline, No JVD CV: RRR, no murmurs, no peripheral edema Resp: Lungs CTA BL, no w/r/c GI: Abd soft, non-distended, non-tender, no r/r/g Musc: Full ROM, no deformity Skin: Warm, dry Neuro: Alert, oriented, grossly intact, sensation intact Psych: Cooperative, appropriate mood and affect [facility] Medical History High cholesterol Home Medications ?Medication ?Instructions ?Recorded ?Last Taken ?Type atorvastatin 10 mg tablet 10 mg PO DAILY 11/18/21 Unkn own History Allergy/AdvReac Type Severity Reaction Status Date / Time No Known Allergies Allergy Verified 02/08/25 18:17 Family History Other Arthritis Asthma CVA (cerebral vascular accident) Cancer Heart disease High cholesterol Hypertension Lupus Thyroid disorder Surgical History [place] teeth extracted Social History current occupational status: employed Smoking Status: Former smoker EXAM Physical Exam Const Vital Signs: 02/08/25 18:17 02/08/25 18:40 02/08/25 20:17 Temperature 97.8 F Temperature Source Temporal Pulse Rate 85 56 L Respiratory Rate 18 17 Respiratory Effort Normal Non-Labored Blood Pressure 130/85 H 115/84 H Blood Pressure Mean 100 94 Pulse Ox 99 96 Oxygen Delivery Method Room Air Room Air 02/08/25 21:55 Temperature 97.8 F Temperature Source Pulse Rate 61 Respiratory Rate 18 Respiratory Effort Blood Pressure 118/87 H Blood Pressure Mean 97 Pulse Ox 96 Oxygen Delivery Method MDM MDM MDM Narrative Medical decision making narrative: 34-year-old male with past medical history of anxiety not on medication, HLD presents for evaluation of chest pain. The onset of chest pain was prior to arrival while at work. Patient states that he was working when he developed chest tightness, palpitations, paresthesias in the bilateral hands, shortness of breath, lightheadedness. States it lasted approximately 10 minutes and then improved. Patient states he periodically has these episodes. States he has had it worked up in the past without any diagnosis. Patient states he used to take clonidine which helped with the episodes but that he was taken off of this. Differential diagnosis includes but is not limited to anxiety reaction, panic attack, electrolyte abnormality, thyroid disease, ACS, PE. Aspirin and Ativan ordered for symptoms. Cardiac workup ordered. EKG and chest x-ray reviewed see below. CBC without leukocytosis or anemia. Coagulation panel unremarkable. D- dimer unremarkable. BMP unremarkable. Magnesium mildly elevated at 2.5. BMP unremarkable. TSH unremarkable. Troponin x 2 unremarkable. On reevaluation, patient's chest pain and symptoms have resolved. He has remained asymptomatic. At this point in time no clear etiology for patient's symptoms however suspect there is an anxiety component. Follow-up with PCP. He confirmed understand the plan. Return precautions explained. Patient stable to discharge home. EKG: Interpreted by me/EM physician: EKG shows normal sinus rhythm without acute ischemic changes. Heart rate 71 Diagnostic: Interpreted by me/EM physician: Chest x-ray without pneumonia, effusion, cardiomegaly, pneumothorax Impression: 1. Chest pain 2. Anxiety Lab Data Labs: Laboratory Results - last 24 hr 02/08/25 02/08/25 19:00 21:00 WBC 6.5 RBC 4.89 Hgb 15.1 Hct 43.6 MCV 89.2 MCH 30.9 MCHC 34.6 RDW Std Deviation 41.1 RDW Coeff of Fede 12.5 Plt Count 254 MPV 9.6 Immature Gran % (Auto) 0.300 Neut % (Auto) 55.6 Lymph % (Auto) 35.3 [place] % (Auto) 7.7 Eos % (Auto) 0.9 Baso % (Auto) 0.2 Absolute Neuts (auto) 3.6 Absolute Lymphs (auto) 2.28 Nucleated RBC % 0 PT 12.6 INR 0.9 APTT 30.3 D-Dimer Quant (PE/DVT) < 0.27 L Sodium 138 Potassium 3.7 Chloride 103 Carbon Dioxide 23.6 Anion Gap 12 BUN 16 Creatinine 1.07 Estim Creat Clear Calc 110.66 Est GFR (MDRD) Non-Af 93 BUN/Creatinine Ratio 14.8 Glucose 94 Calcium 8.6 Magnesium 2.5 H Troponin T High Sens < 6 Troponin T Hi Sens 2 Hr < 6 NT pro BNP II 49 TSH 1.470 Radiography Diagnostic Testing: Clinical Impression(s) from Imaging Studies Chest X-Ray 02/08/25 19:05 IMPRESSION: No acute cardiopulmonary disease. Reading Location: [facility] Discharge Plan Triage Chief Complaint: Chest Pain ED Provider: Truong Coelho Dx/Rx/DC Orders Prescriptions: No Action atorvastatin 10 mg Tablet 10 mg PO DAILY Primary Care Provider: Liana Klein Referrals: Liana Klein MD [Primary Care Provider] - Print Language: Khmer
--- NOTE | 2025-02-08 19:05 | RAD_ITS ---
PROCEDURE: CHEST PA AND LATERAL 02/08/2025 REASON FOR EXAM: CHEST PAIN TECHNIQUE: Procedure Code: RADCXR Modality: DX Procedure: CHEST PA AND LATERAL COMPARISON: 06/08/2024 FINDINGS: Lungs/Pleura: Clear. No pneumothorax or pleural effusion. Heart/Mediastinum: Normal in size. No vascular congestion. Bones/Soft tissues: Unremarkable. RAD/Chest PA and Lateral IMPRESSION: No acute cardiopulmonary disease. Reading Location: [facility]
[2025-02-08 19:21] LABS: Hematocrit 43.6 % (40-54); Hemoglobin 15.1 g/dL (13.0-16.5); Immature Granulocytes Count 0.020 X10^3/uL (0.0-0.0); Mean Corp Hgb Conc 34.6 g/dL (32-36); Mean Corpuscular Volume 89.2 fL (80-94); Mean Platelet Vol. 9.6 fl (6.2-12.0); NRBC Flagged by Analyzer 0 % (0-5); Platelet Count 254 K/mm3 (150-450); RBC Distribution Width CV 12.5 % (11.6-14.6); RBC Distribution Width SD 41.1 fl (35.1-43.9); Red Blood Count 4.89 M/mm3 (4.6-6.2); White Blood Count 6.5 K/mm3 (4.4-11.0)
[2025-02-08 19:41] LABS: Prothrombin Time (Protime)PT. 12.6 SECONDS (11.7-14.9)
[2025-02-08 19:42] LABS: Partial Thromboplast Time 30.3 Seconds (24.1-36.2)
[2025-02-08 19:50] LABS: Anion Gap 12 (5-15); BUN 16 mg/dL (4-19); BUN/Creat Ratio 14.8 RATIO (10-20); Calcium,Total 8.6 mg/dL (7.6-11.0); Carbon Dioxide 23.6 mmol/L (21.0-32.0); Chloride 103 mmol/L (98-108); Estimated Creatinine Clearance 110.66 ml/min (50-250); Glucose 94 mg/dL (70-99); Magnesium 2.5 mg/dL (1.5-2.2); Potassium 3.7 mmol/L (3.3-5.1); Pro- Brain NATRIURETIC PEPTIDE 49 pg/mL (<=450); Troponin T High Sensitivity < 6 ng/L (<=22)
[2025-02-08 20:14] LABS: D-Dimer Quantitative (DVT/PE) < 0.27 FEU/ug/m (0.27-0.49)
[2025-02-08 20:17] VITALS: BP 115/84; PULSE 56; RESP 17; O2SAT 96
[2025-02-08 21:43] LABS: Troponin T High Sens 2 HR < 6 ng/L (<=22)
[2025-02-08 21:55] VITALS: BP 118/87; PULSE 61; RESP 18; TEMP 36.6; O2SAT 96
== END 2025-02-08 22:07 | disposition home or self-care (01) ==
PROVIDERS: Emergency Provider Surgery; PCP Internal Medicine; Visit Provider Surgery
DX: R07.89 Other chest pain (principal); F41.9 Anxiety disorder, unspecified; R06.02 Shortness of breath; E78.5 Hyperlipidemia, unspecified; Z79.899 Other long term (current) drug therapy; Z87.891 Personal history of nicotine dependence
CPT/HCPCS: 71046; 80048; 83735; 83880; 84443; 84484; 85025; 85379; 85610; 85730; 93005; 99285; A4216